=== PATIENT | female | born 1975 | race Caucasian/White ===

== ENCOUNTER 2016-12-19 02:20 | Inpatient (IN) | payer OTHER ==
[~2016-12-19] VITALS: Ht 162.6 cm; Wt 113.7 kg
[~2016-12-19 02:20] MED LIST: DIAZEPAM10 MG PO; ESCI20TA10 PO; LEVO750T31 PO; METF500T4 PO; PALI9TAB PO; PRED20TA PO; PROAIR HFA8.5 GM IH
--- NOTE | 2016-12-19 03:27 | PHYS DOC ---
Past Medical History Past Medical History: Asthma, Bronchitis, COPD, Diabetes-Type II Additional Past Medical Histor: Hepatitis C Past Surgical History: Appendectomy, Cholecystectomy, Alcohol Use: None Drug Use: None Adult General Chief Complaint Chief Complaint: MULTIPLE COMPLAINTS HPI HPI Patient is a 41 year old female who presents with complaint of body aches and shortness of breath. Patient states her symptoms started yesterday morning and has continued to get worse. Patient states that she feels achy all over. Patient has also had dry cough and mild shortness of breath associated with her symptoms. Patient rates her discomfort as 8 out of 10. Patient states that she had a fever of 102.1F measured yesterday. Patient states she took Tylenol approximately 8 hours ago. Patient minutes to sore throat and mild headache. Patient denies chest pain or vomiting currently. Review of Systems Review of Systems Constitutional: Fever, chills [] Eyes: Denies change in visual acuity, redness, or eye pain [] HENT: Sore throat [] Respiratory: Cough, shortness of breath [] Cardiovascular: Denies chest pain or edema [] GI: Denies abdominal pain, nausea, vomiting, bloody stools or diarrhea [] : Denies dysuria or hematuria [] Musculoskeletal: Body aches, denies joint pain [] Integument: Denies rash or skin lesions [] Neurologic: Headache, denies focal weakness or sensory changes [] Current Medications Current Medications Current Medications Medications (Trade) Dose Ordered Sig/Fazal Start Time Stop Time Status Last Admin Dose Admin Acetaminophen (Tylenol) 650 mg PRN Q4HRS PRN 12/19/16 05:45 12/20/16 05:44 Albuterol/ Ipratropium (Duoneb) 3 ml RTQID 12/19/16 08:00 12/20/16 07:59 Fentanyl Citrate 50 mcg 50 mcg PRN Q2HR PRN 12/19/16 05:45 12/20/16 05:44 Ibuprofen (Motrin) 400 mg 1X ONCE 12/19/16 03:30 12/19/16 03:57 DC 12/19/16 04:08 400 MG Info (Do NOT chart on this entry -- for MONITORING) 1 each PRN DAILY PRN 12/19/16 04:45 12/21/16 04:44 Iohexol (Omnipaque 300 Mg/ml) 75 ml 1X ONCE 12/19/16 04:45 12/19/16 04:46 DC 12/19/16 05:08 75 ML Levofloxacin/ Dextrose (LEVAQUIN 500mg PREMIX) 100 ml @ 100 mls/hr Q24H 12/19/16 06:00 Levofloxacin/ Dextrose 1 each 1 each PRN DAILY PRN 12/19/16 06:00 Ondansetron HCl (Zofran) 4 mg PRN Q8HRS PRN 12/19/16 05:45 12/20/16 05:44 Sodium Chloride (Iv Sodium Chloride 0.9% 1000ml Bag) 1,000 ml @ 125 mls/hr Q8H 12/19/16 05:45 12/20/16 05:44 Allergies Allergies Allergies Coded Allergies Type Severity Reaction Last Updated Verified No Known Drug Allergies 11/29/14 No Physical Exam Physical Exam Constitutional: Alert, obese, afebrile, appears in mild to moderate discomfort. [] HENT: Normocephalic, atraumatic, bilateral external ears normal, oropharynx moist, no oral exudates, nose normal. [] Eyes: PERRLA, EOMI, conjunctiva normal, no discharge. [] Neck: Normal range of motion, no tenderness, supple, no stridor. [] Cardiovascular: Tachycardia, regular rhythm, no murmur [] Lungs & Thorax: Mild to moderate stricture of air movement bilaterally, expiratory wheezes bilaterally, rales [] Abdomen: Bowel sounds normal, soft, no tenderness, no masses, no pulsatile masses. [] Skin: Warm, dry, no erythema, no rash. [] Back: No tenderness, no CVA tenderness. [] Extremities: No tenderness, no cyanosis, no clubbing, ROM intact, no edema. [] Neurologic: Alert and oriented X 3, normal motor function, normal sensory function, no focal deficits noted. [] Current Patient Data Vital Signs Vital Signs Date Time Temp Pulse Resp B/P Pulse Ox O2 Delivery O2 Flow Rate FiO2 12/19/16 05:00 102 132/87 91 Nasal Cannula 4 12/19/16 03:01 98.9 15 98.9 Lab Values Laboratory Tests Test 12/19/16 02:43 12/19/16 03:15 White Blood Count 12.3x10^3/uL (4.0-11.0) H Red Blood Count 5.31x10^6/uL (3.50-5.40) Hemoglobin 17.4g/dL (12.0-15.5) H Hematocrit 54.4% (36.0-47.0) H Mean Corpuscular Volume 102fL (79-100) H Mean Corpuscular Hemoglobin 33pg (25-35) Mean Corpuscular Hemoglobin Concent 32g/dL (31-37) Red Cell Distribution Width 16.8% (11.5-14.5) H Platelet Count 231x10^3/uL (140-400) Neutrophils (%) (Auto) 72% (31-73) Lymphocytes (%) (Auto) 17% (24-48) L Monocytes (%) (Auto) 8% (0-9) Eosinophils (%) (Auto) 2% (0-3) Basophils (%) (Auto) 0% (0-3) Neutrophils # (Auto) 8.9x10^3uL (1.8-7.7) H Lymphocytes # (Auto) 2.1x10^3/uL (1.0-4.8) Monocytes # (Auto) 1.0x10^3/uL (0.0-1.1) Eosinophils # (Auto) 0.2x10^3/uL (0.0-0.7) Basophils # (Auto) 0.0x10^3/uL (0.0-0.2) Sodium Level 141mmol/L (136-145) Potassium Level 3.9mmol/L (3.5-5.1) Chloride Level 99mmol/L (98-107) Carbon Dioxide Level 37mmol/L (21-32) H Anion Gap 5 (6-14) L Blood Urea Nitrogen 8mg/dL (7-20) Creatinine 0.8mg/dL (0.6-1.0) Estimated GFR (Cockcroft-Gault) 79.4 BUN/Creatinine Ratio 10 (6-20) Glucose Level 159mg/dL (70-99) H Calcium Level 8.9mg/dL (8.5-10.1) Total Bilirubin 0.5mg/dL (0.2-1.0) Aspartate Amino Transferase (AST) 29U/L (15-37) Alanine Aminotransferase (ALT) 42U/L (14-59) Alkaline Phosphatase 88U/L (46-116) Total Protein 7.1g/dL (6.4-8.2) Albumin 3.3g/dL (3.4-5.0) L Albumin/Globulin Ratio 0.9 (1.0-1.7) L Influenza Type A Antigen Negative (NEGATIVE) Influenza Type B Antigen Negative (NEGATIVE) Laboratory Tests 12/19/16 02:43 Laboratory Tests 12/19/16 02:43 EKG EKG Interpreted by me: Heart rate 94, sinus tachycardia, normal intervals, normal axis, no acute ST/T-wave abnormalities present [] Radiology/Procedures Radiology/Procedures One view AP chest x-ray interpreted by me: Right lower lobe perihilar consolidation versus mass, no effusions, no cardiomegaly [facility] [address] [place] [address] IMAGING REPORT Signed PATIENT: SHAHNAZ PELAEZ I ACCOUNT: [id number] : 1975 LOCATION: ER AGE: 41 SEX: F EXAM STATUS: REG ER ORD. PHYSICIAN: TANK KEARNEY MD REASON: right lower lobe pneumonia versus mass PROCEDURE: CHEST W/CONTRAST Examination: CT chest with IV contrast History: History of right lower lobe pneumonia. COMPARISON None available. TECHNIQUE Axial CT images of the chest were performed with IV contrast. Coronal and sagittal reformats were performed. Exposure: One or more of the following dose reduction technique were utilized for this examination: 1. Automated exposure control. 2.Adjustment of MA and /or KV according to patient size. 3. Use of iterative reconstruction technique. Findings: The visualized thyroid grossly appears unremarkable. The central airways are patent. Moderate cardiomegaly. Mild prominent bilateral interlobular septa. There is consolidation changes identified in the inferior aspect of the right upper lobe and right middle lobe of the lung likely pneumonia or postobstructive atelectasis. Central mass causing post obstructive atelectasis in the right hilum is not completely excluded. The right middle lobe bronchus appears narrowed. There is a diffuse geographic areas of hypodensities identified in the right and left lobes of the liver probably fatty infiltration . The visualized spleen, adrenal grossly appears unremarkable . No evidence of lytic bony destructive lesion identified. IMPRESSION 1. Right inferior upper lobe and middle lobe consolidation changes identified likely pneumonia or postobstructive atelectasis or central mass causing postobstructive atelectasis not completely excluded. Differentiation is difficult as not much IV contrast is identified in the vasculature. The right middle lobe bronchi appear narrowed. Recommend close interval followup examination to document resolution. 2. Large geographic areas of hypodensities identified in the liver likely fatty infiltration. Comparison to prior exam is recommended. Images are not available for comparison at this time. 3. Moderate cardiomegaly with prominent appearing bilateral interlobular septa likely congestion. Electronically signed by: George Lizama (Dec 19, 2016 05:48:07) DICTATED and SIGNED BY: GEORGE LIZAMA MD DATE: 12/19/16 0548 CC: MANUEL JEFFERSON MD; TANK KEARNEY MD ~ [] Course & Med Decision Making Course & Med Decision Making Pertinent Labs and Imaging studies reviewed. (See chart for details) Patient was started on IV fluids, Zofran, and fentanyl. Patient's chest x-ray showed a right lower lobe pneumonia as well as what looked like an abnormal mass lesion. CT of the chest also raise suspicion for malignancy. Patient was started on IV Levaquin. Patient will be admitted for further treatment and evaluation. I spoke with Dr. Coto who was on-call for Dr. Jefferson and she accepted care patient in hospital. A consult was placed to Dr. Calle to follow with patient in hospital. Dragon Disclaimer Dragon Disclaimer This electronic medical record was generated, in whole or in part, using a voice recognition dictation system. Departure Departure Impression: Primary Impression: CAP (community acquired pneumonia) Additional Impressions: COPD with acute exacerbation Dehydration Hepatic lesion Disposition: ADMITTED INPATIENT Admitting Physician: Kaela Coto Condition: GUARDED Referrals: MANUEL JEFFERSON MD (PCP) Problem Qualifiers TANK KEARNEY MD Dec 19, 2016 03:27
[2016-12-19 03:28] LABS: BASO % 0 % (0-3); EOS % 2 % (0-3); HEMATOCRIT 54.4 % (36.0-47.0); HEMOGLOBIN 17.4 g/dL (12.0-15.5); LYMPH # 2.1 x10^3/uL (1.0-4.8); LYMPH % 17 % (24-48); MEAN CORPUSCULAR HEMOGLOBIN 33 pg (25-35); MEAN CORPUSCULAR HGB CONC 32 g/dL (31-37); MEAN CORPUSCULAR VOLUME 102 fL (79-100); MONO % 8 % (0-9); NEUT % 72 % (31-73); PLATELET COUNT 231 x10^3/uL (140-400); RED BLOOD COUNT 5.31 x10^6/uL (3.50-5.40); RED CELL DISTRIBUTION WIDTH 16.8 % (11.5-14.5); WHITE BLOOD COUNT 12.3 x10^3/uL (4.0-11.0)
[2016-12-19] MEDS ORDERED: IPRATRPIUM/ALBUTEROL 0.5/2.5MG 3 ML NEBU. NEB ONE (03:30)
[2016-12-19] MEDS ORDERED: IV NORMAL SALINE 1000ML BAG 1,000 ML IV SCH ×2 (03:30→05:45)
[2016-12-19] MEDS ORDERED: IBUPROFEN 400 MG TABLET. PO ONE (03:30)
[2016-12-19 03:40] LABS: CALCIUM 8.9 mg/dL (8.5-10.1); CREATININE 0.8 mg/dL (0.6-1.0); GFR 79.4; POTASSIUM 3.9 mmol/L (3.5-5.1)
[2016-12-19 03:46] LABS: ALBUMIN 3.3 g/dL (3.4-5.0); ALBUMIN/GLOBULIN RATIO 0.9 (1.0-1.7); TOTAL BILIRUBIN 0.5 mg/dL (0.2-1.0); TOTAL PROTEIN 7.1 g/dL (6.4-8.2)
[2016-12-19 04:15] LABS: OBC FLU VALID
[2016-12-19] MEDS ORDERED: CONTRAST GIVEN MC PRN (04:45)
[2016-12-19] MEDS ORDERED: IOHEXOL 300 MG/ML 75 ML VIAL IV ONE (04:45)
[2016-12-19] MEDS ORDERED: ONDANSETRON PF 4 MG/2 ML VIAL. IV PRN (05:45)
[2016-12-19] MEDS ORDERED: ACETAMINOPHEN 325 MG TABLET. PO PRN (05:45)
[2016-12-19] MEDS ORDERED: FENTANYL PF 100 MCG/2 ML VIAL. IV PRN (05:45)
--- NOTE | 2016-12-19 05:49 | RAD ---
Examination: CT chest with IV contrast History: History of right lower lobe pneumonia. COMPARISON None available. TECHNIQUE Axial CT images of the chest were performed with IV contrast. Coronal and sagittal reformats were performed. Exposure: One or more of the following dose reduction technique were utilized for this examination: 1. Automated exposure control. 2.Adjustment of MA and /or KV according to patient size. 3. Use of iterative reconstruction technique. Findings: The visualized thyroid grossly appears unremarkable. The central airways are patent. Moderate cardiomegaly. Mild prominent bilateral interlobular septa. There is consolidation changes identified in the inferior aspect of the right upper lobe and right middle lobe of the lung likely pneumonia or postobstructive atelectasis. Central mass causing post obstructive atelectasis in the right hilum is not completely excluded. The right middle lobe bronchus appears narrowed. There is a diffuse geographic areas of hypodensities identified in the right and left lobes of the liver probably fatty infiltration . The visualized spleen, adrenal grossly appears unremarkable . No evidence of lytic bony destructive lesion identified. IMPRESSION 1. Right inferior upper lobe and middle lobe consolidation changes identified likely pneumonia or postobstructive atelectasis or central mass causing postobstructive atelectasis not completely excluded. Differentiation is difficult as not much IV contrast is identified in the vasculature. The right middle lobe bronchi appear narrowed. Recommend close interval followup examination to document resolution. 2. Large geographic areas of hypodensities identified in the liver likely fatty infiltration. Comparison to prior exam is recommended. Images are not available for comparison at this time. 3. Moderate cardiomegaly with prominent appearing bilateral interlobular septa likely congestion. Electronically signed by: George Lizama (Dec 19, 2016 05:48:07)
[2016-12-19] MEDS ORDERED: LEVOFLOXACIN PER PHARMACY MC PRN (06:00)
--- NOTE | 2016-12-19 06:36 | ACF ---
Admission Forms Criteria COPD Clinical Indications for Admission to Inpatient Care (Place 'X' for any and all applicable criteria): Admission is indicated for ANY ONE of the following (1)(2)(3): [X]I. Acute exacerbation by high-risk comorbidity (e.g., pneumonia, dysrhythmia, heart failure, pleural effusion, pneumothorax) or severe underlying COPD (e.g., steroid dependent) [ ]II. Inpatient admission required rather than observation care (see Chronic Obstructive Pulmonary Disease: Observation Care) because of ANY ONE of the following: [ ]a) New or pre-existing signs or symptoms of COPD (eg, dyspnea or Tachypnea at rest or with minimal activity) that persist despite outpatient and observation care treatment [ ]b) New-onset hypoxemia (room air SaO2 less than 90%, PO2 less than 60 mm Hg (8.0 kPa)) that persists despite outpatient and observation care treatment [ ]c) Worsening of pre-existing hypoxemia (eg, new or increased requirement for supplemental oxygen to maintain oxygenation at baseline level) that persists despite outpatient and observation care treatment, with oxygen treatment needs performable only in acute inpatient setting [ ]d) Hypercarbia (PCO2 greater than 40 mm Hg (5.3 kPa))-induced respiratory acidosis (pH less than 7.35) that persists despite outpatient and observation care treatment [ ]e) Supplemental oxygen or respiratory treatments for over 24 hours that are performable only in acute inpatient setting [ ]f) Chest tube placement with active evacuation (e.g., suction, drainage) (5) [ ]g) Other condition, treatment or monitoring requiring inpatient admission [ ]III. Planned invasive surgical or diagnostic procedures requiring acute- care hospitalization [ ]IV. Acute respiratory failure (e.g., uncompensated hypercarbia, severe hypoxemia) [ ]V. Severe comorbid condition (e.g., severe steroid myopathy, acute vertebral fracture) that has acutely worsened pulmonary function [ ]. Confusion state, lethargy, obtundation, stupor or coma Extended stay beyond goal length of stay may be needed for (31)(32): [ ]a ) Respiratory Failure. [ ]b) Severe or persisting hypoxemia or hypercarbia [ ]c) Severe or persistent dyspnea [ ]d) Comorbidities (e.g. chronic heart failure, atrial fibrillation with rapid response, pneumonia) [ ]e) Malnutrition The original [facility] content created by [facility] has been revised. The portions of the content which have been revised are identified through the use of italic text or in bold, and [facility] has neither reviewed nor approved the modified material. All other unmodified content is copyright [facility]. Please see references footnoted in the original [facility] edition 2016 Admission Criteria Met?: Yes JUNE TRAVIS Dec 19, 2016 06:36
[2016-12-19 07:00] VITALS: BP 127/94
--- NOTE | 2016-12-19 07:54 | RAD ---
Indication shortness of breath. A single view chest was obtained. Comparison is made to a study 06/03/2015. There is an infiltrate in the right lower lobe compatible with pneumonia. Follow-up imaging, to resolution, advised. A focal infiltrate in the left lung is not seen. Significant pleural fluid is not present. There is no pneumothorax. IMPRESSION: Infiltrate in the right lower lobe compatible with pneumonia. Follow-up imaging, to resolution, advised
[2016-12-19] MEDS: IPRATRPIUM/ALBUTEROL 0.5/2.5MG 3 ML NEBU. NEB SCH ×4 (09:40→19:43)
[2016-12-19] MEDS ORDERED: DEXTROSE 50% 25 GM / 50ML DISP.SYRIN. IV PRN (09:45)
[2016-12-19] MEDS ORDERED: FLUT100D IH (10:04)
[2016-12-19] MEDS ORDERED: PALI3TAB2 PO (10:04)
[2016-12-19] MEDS ORDERED: [UNRECOGNIZED DRUG - OTHER] (10:04)
[2016-12-19] MEDS ORDERED: CETI10TA16 PO (10:04)
[2016-12-19] MEDS ORDERED: HYDR-971 PO (10:04)
[2016-12-19] MEDS ORDERED: PALI9TAB PO (10:04)
[2016-12-19] MEDS ORDERED: INSU300I SQ (10:04)
[2016-12-19] MEDS ORDERED: INSU100C4 SQ (10:04)
[2016-12-19] MEDS ORDERED: OMEP20CA9 PO (10:04)
[2016-12-19] MEDS ORDERED: DIAZEPAM 5 MG TABLET PO PRN (10:15)
--- NOTE | 2016-12-19 10:16 | PDOC ---
PROGRESS NOTES Subjective Subjective Patient requests her [place] and Valium. States her breathing is some better than at admission. Reports she has O2 at home but hadn't been using it recently. Objective Objective Vital Signs Date Time Temp Pulse Resp B/P Pulse Ox O2 Delivery O2 Flow Rate FiO2 12/19/16 09:43 97 Nasal Cannula 4.0 12/19/16 07:00 98.8 91 20 127/94 98.8 Intake and Output 12/19/16 07:00 Intake Total 1000 ml Balance 1000 ml Intake IV Total 1000 ml Physical Exam Abdomen: Normal bowel sounds, Soft, No tenderness Heart: Regular rate Extremities: No edema General: Alert, Oriented X3, No acute distress Lungs: Other (Coarse BS and expiratory wheezes throughout) Assessment Assessment Problems Medical Problems: (1) CAP (community acquired pneumonia) Status: Acute (2) COPD with acute exacerbation Status: Acute (3) Dehydration Status: Acute (4) Hepatic lesion Status: Acute Plan Plan of Care 1. Pneumonia with AE COPD and chronic respiratory failure - CT chest showed infiltrates, possibly post-obstructive. No hypoxia on O2 per NC. Started on Levaquin, Pulmonary consult pending. 2. DM2 - insulin-dependent. Has not been well controlled per office chart. Patient admits she is taking less insulin that Dr Jefferson has advised, and not taking with every meal. Will resume here and adjust doses as indicated. ADA diet also ordered. 3. chronic anxiety - resume home meds, patient feels she has been doing OK with these. 4. chronic pain - resume [place]. 5. fatty liver - this was seen on CT at admission and concern was for possible metastatic disease? CT on office chart from 2014 shows fatty infiltration so metastasis from unknown primary very unlikely. 6. tobaccoism - patient requests Nicotine patch while here, ordered. She is aware of advice to quit smoking, states she is trying to cut down. Comment Review of Relevant I have reviewed the following items suyapa (where applicable) has been applied. Labs Laboratory Tests Test 12/19/16 02:43 12/19/16 03:15 12/19/16 07:58 White Blood Count 12.3x10^3/uL (4.0-11.0) Red Blood Count 5.31x10^6/uL (3.50-5.40) Hemoglobin 17.4g/dL (12.0-15.5) Hematocrit 54.4% (36.0-47.0) Mean Corpuscular Volume 102fL (79-100) Mean Corpuscular Hemoglobin 33pg (25-35) Mean Corpuscular Hemoglobin Concent 32g/dL (31-37) Red Cell Distribution Width 16.8% (11.5-14.5) Platelet Count 231x10^3/uL (140-400) Neutrophils (%) (Auto) 72% (31-73) Lymphocytes (%) (Auto) 17% (24-48) Monocytes (%) (Auto) 8% (0-9) Eosinophils (%) (Auto) 2% (0-3) Basophils (%) (Auto) 0% (0-3) Neutrophils # (Auto) 8.9x10^3uL (1.8-7.7) Lymphocytes # (Auto) 2.1x10^3/uL (1.0-4.8) Monocytes # (Auto) 1.0x10^3/uL (0.0-1.1) Eosinophils # (Auto) 0.2x10^3/uL (0.0-0.7) Basophils # (Auto) 0.0x10^3/uL (0.0-0.2) Sodium Level 141mmol/L (136-145) Potassium Level 3.9mmol/L (3.5-5.1) Chloride Level 99mmol/L (98-107) Carbon Dioxide Level 37mmol/L (21-32) Anion Gap 5 (6-14) Blood Urea Nitrogen 8mg/dL (7-20) Creatinine 0.8mg/dL (0.6-1.0) Estimated GFR (Cockcroft-Gault) 79.4 BUN/Creatinine Ratio 10 (6-20) Glucose Level 159mg/dL (70-99) Calcium Level 8.9mg/dL (8.5-10.1) Total Bilirubin 0.5mg/dL (0.2-1.0) Aspartate Amino Transf (AST/SGOT) 29U/L (15-37) Alanine Aminotransferase (ALT/SGPT) 42U/L (14-59) Alkaline Phosphatase 88U/L (46-116) Total Protein 7.1g/dL (6.4-8.2) Albumin 3.3g/dL (3.4-5.0) Albumin/Globulin Ratio 0.9 (1.0-1.7) Influenza Type A Antigen Negative (NEGATIVE) Influenza Type B Antigen Negative (NEGATIVE) Glucose (Fingerstick) 172mg/dL (70-99) Laboratory Tests Test 12/19/16 02:43 12/19/16 03:15 12/19/16 07:58 White Blood Count 12.3x10^3/uL (4.0-11.0) Red Blood Count 5.31x10^6/uL (3.50-5.40) Hemoglobin 17.4g/dL (12.0-15.5) Hematocrit 54.4% (36.0-47.0) Mean Corpuscular Volume 102fL (79-100) Mean Corpuscular Hemoglobin 33pg (25-35) Mean Corpuscular Hemoglobin Concent 32g/dL (31-37) Red Cell Distribution Width 16.8% (11.5-14.5) Platelet Count 231x10^3/uL (140-400) Neutrophils (%) (Auto) 72% (31-73) Lymphocytes (%) (Auto) 17% (24-48) Monocytes (%) (Auto) 8% (0-9) Eosinophils (%) (Auto) 2% (0-3) Basophils (%) (Auto) 0% (0-3) Neutrophils # (Auto) 8.9x10^3uL (1.8-7.7) Lymphocytes # (Auto) 2.1x10^3/uL (1.0-4.8) Monocytes # (Auto) 1.0x10^3/uL (0.0-1.1) Eosinophils # (Auto) 0.2x10^3/uL (0.0-0.7) Basophils # (Auto) 0.0x10^3/uL (0.0-0.2) Sodium Level 141mmol/L (136-145) Potassium Level 3.9mmol/L (3.5-5.1) Chloride Level 99mmol/L (98-107) Carbon Dioxide Level 37mmol/L (21-32) Anion Gap 5 (6-14) Blood Urea Nitrogen 8mg/dL (7-20) Creatinine 0.8mg/dL (0.6-1.0) Estimated GFR (Cockcroft-Gault) 79.4 BUN/Creatinine Ratio 10 (6-20) Glucose Level 159mg/dL (70-99) Calcium Level 8.9mg/dL (8.5-10.1) Total Bilirubin 0.5mg/dL (0.2-1.0) Aspartate Amino Transf (AST/SGOT) 29U/L (15-37) Alanine Aminotransferase (ALT/SGPT) 42U/L (14-59) Alkaline Phosphatase 88U/L (46-116) Total Protein 7.1g/dL (6.4-8.2) Albumin 3.3g/dL (3.4-5.0) Albumin/Globulin Ratio 0.9 (1.0-1.7) Influenza Type A Antigen Negative (NEGATIVE) Influenza Type B Antigen Negative (NEGATIVE) Glucose (Fingerstick) 172mg/dL (70-99) Medications Current Medications Sodium Chloride (Iv Sodium Chloride 0.9% 1000ml Bag) 1,000 ml @ 1,000 mls/hr Q1H IV Last administered on 12/19/16 04:08; Start 12/19/16 at 03:30; Stop at 04:30; Status DC Albuterol/ Ipratropium (Duoneb) 3 ml 1X ONCE NEB Last administered on 04:22; Start 12/19/16 at 03:30; Stop 12/19/16 at 03:57; Status DC Ibuprofen (Motrin) 400 mg 1X ONCE PO Last administered on 12/19/16 04:08; Start 12/19/16 at 03:30; Stop 12/19/16 at 03:57; Status DC Iohexol (Omnipaque 300 Mg/ml) 75 ml 1X ONCE IV Last administered on 12/19/16 05:08; Start 12/19/16 at 04:45; Stop 12/19/16 at 04:46; Status DC Info (Do NOT chart on this entry -- for MONITORING) 1 each PRN DAILY PRN MC SEE COMMENTS; Start 12/19/16 at 04:45; Stop 12/21/16 at 04:44 Ondansetron HCl (Zofran) 4 mg PRN Q8HRS PRN IV NAUSEA/VOMITING; Start 12/19/16 at 05:45; Stop 12/20/16 at 05:44 Fentanyl Citrate 50 mcg 50 mcg PRN Q2HR PRN IV PAIN; Start 12/19/16 at 05:45; Stop 12/20/16 at 05:44 Sodium Chloride (Iv Sodium Chloride 0.9% 1000ml Bag) 1,000 ml @ 125 mls/hr Q8H IV ; Start 12/19/16 at 05:45; Stop 12/20/16 at 05:44 Acetaminophen (Tylenol) 650 mg PRN Q4HRS PRN PO FEVER; Start 12/19/16 at 05:45 ; Stop 12/20/16 at 05:44 Albuterol/ Ipratropium (Duoneb) 3 ml RTQID NEB Last administered on 12/19/16 09:40; Start 12/19/16 at 08:00; Stop 12/20/16 at 07:59 Levofloxacin/ Dextrose 1 each 1 each PRN DAILY PRN MC SEE COMMENTS; Start 12/19 at 06:00 Levofloxacin/ Dextrose (LEVAQUIN 500mg PREMIX) 100 ml @ 100 mls/hr Q24H IV Last administered on 12/19/16 06:32; Start 12/19/16 at 06:00 Insulin Aspart (Novolog) 0-9 UNITS TIDWMEALS SQ ; Start 12/19/16 at 12:00 Dextrose 12.5 gm PRN Q15MIN PRN IV SEE COMMENTS; Start 12/19/16 at 09:45 Active Scripts Active [place] 5-325 Tablet (Acetaminophen/Hydrocodone Bitart) 1 Each Tablet 1 Tab PO TID Toujeo Solostar (Insulin Glargine,Hum.rec.anlog) 300 Unit/1 Ml Insuln.pen 65 Unit SQ HS 30 Days Omeprazole 20 Mg Capsule.dr 1 Cap PO BID Novolog (Insulin Aspart) 100 Unit/1 Ml Cartridge 35 Unit SQ TIDAC 30 Days Invega (Paliperidone) 9 Mg Tab.er.24 1 Tab PO DAILYWBKFT Invega (Paliperidone) 3 Mg Tab.er.24 1 Tab PO DAILY Flovent 100MCG Diskus (Fluticasone Propionate) 100 Mcg Disk.w.dev 2 Puff IH BID Cetirizine Hcl 10 Mg Tablet 1 Tab PO DAILY [norc] Reported Proair Hfa Inhaler (Albuterol Sulfate) 8.5 Gm Hfa.aer.ad 2 Puff IH PRN Q4-6HRS PRN Diazepam 10 Mg Tablet 10 Mg PO TID Vitals/I & O Vital Sign - Last 24 Hours 12/19/16 12/19/16 12/19/16 12/19/16 03:00 03:01 03:30 04:00 Temp 98.9 98.9 Pulse 96 100 100 94 Resp 15 B/P 133/75 133/75 158/90 174/80 Pulse Ox 97 98 97 99 O2 Delivery Nasal Cannula Nasal Cannula Nasal Cannula Room Air O2 Flow Rate 4 4 4 4 12/19/16 12/19/16 12/19/16 12/19/16 04:25 04:30 05:00 06:00 Pulse 98 102 94 B/P 132/87 Pulse Ox 98 96 91 98 O2 Delivery Nasal Cannula Nasal Cannula Nasal Cannula Nasal Cannula O2 Flow Rate 2.0 4 4 4 12/19/16 12/19/16 12/19/16 06:30 07:00 09:43 Temp 98.8 98.8 Pulse 94 91 Resp 20 B/P 127/94 Pulse Ox 94 90 97 O2 Delivery Nasal Cannula Nasal Cannula Nasal Cannula O2 Flow Rate 4 2.0 4.0 Intake and Output 12/18/16 12/18/16 12/19/16 15:00 23:00 07:00 Intake Total 1000 ml Balance 1000 ml ANY JACKSON MD Dec 19, 2016 10:16
[2016-12-19] MEDS ORDERED: NAPR500T3 PO (10:26)
[2016-12-19] MEDS ORDERED: NAPROXEN 500 MG TABLET PO PRN (10:30)
[2016-12-19] MEDS ORDERED: ALBUTEROL SULFATE 2.5 MG/3 ML NEBU. NEB PRN (10:30)
[2016-12-19 10:46] VITALS: BP 118/68
[2016-12-19] MEDS ORDERED: risperiDONE 1 MG TABLET. PO SCH ×2 (11:00→21:00)
[2016-12-19] MEDS: NICOTINE 21MG PATCH. TD SCH (11:28)
[2016-12-19] MEDS: CETIRIZINE HCL 10 MG TABLET. PO SCH (11:28)
--- NOTE | 2016-12-19 11:29 | EKG ---
[facility] [address] [place] [address] Test Date: 2016-12-19 Test Time: 03:19:48 Pat Name: SHAHNAZ PELAEZ Department: Room: Gender: F Cio: : 1975 Requested By: TANK KEARNEY Order Number: [id number] Reading MD: Measurements Intervals [place] Rate: 94 P: 61 AK: 126 QRS: 69 QRSD: 90 T: 66 QT: 398 QTc: 504 Interpretive Statements SINUS RHYTHM LEFT ATRIAL ABNORMALITY PROLONGED QT ABNORMAL ECG RI6.01 No previous ECG available for comparison
[2016-12-19] MEDS: INSULIN ASPART 300 UNITS/3 ML INSULN.PEN SQ SCH ×4 (11:30→18:35)
--- NOTE | 2016-12-19 11:47 | PDOC ---
Provider Note Provider Note [id number] acute on chronic resp fail abnl cxr pneumonia ae of copd see orders SANDRA CANALES MD Dec 19, 2016 11:46
--- NOTE | 2016-12-19 11:50 | HP ---
ADMIT DATE: 12/19/2016 CHIEF COMPLAINT: Cough and shortness of breath. HISTORY OF PRESENT ILLNESS: The patient is a 41-year-old female with a history of chronic respiratory failure due to COPD, who presented to the Emergency Room with the above complaint. She reported the onset of her symptoms on the day prior to admission. She had some diffuse myalgias and a dry cough. The patient has oxygen at home that she is prescribed to use continuously. She states that she had not been wearing it much, but she did put it on when she had the onset of the symptoms as above, but her symptoms persisted. Evaluation in the Emergency Room showed the patient to be afebrile. She was not hypoxic on oxygen per nasal cannula. Chest x-ray showed an infiltrate in the right lower lobe. CT of the chest was done, which showed right upper lobe and middle lobe consolidation, possibly on a postobstructive basis and the patient was admitted for further treatment. PAST MEDICAL HISTORY: Chronic respiratory failure due to COPD - the patient has been continuing his oxygen for this for some time, diabetes mellitus type 2 - insulin-dependent, hyperlipidemia with fatty liver, chronic anxiety with psychotic features, and GERD. PAST SURGICAL HISTORY: , laparoscopic appendectomy, and laparoscopic cholecystectomy. ALLERGIES: The patient has no known drug allergies. HOME MEDICATIONS: Morton 7.5/325 mg p.r.n., albuterol inhaler p.r.n., Zyrtec 10 mg daily, Valium 10 mg t.i.d., Flovent 100 mcg Diskus 2 puffs b.i.d., NovoLog insulin 35 units t.i.d. a.c., Toujeo insulin 65 units at bedtime, omeprazole 20 mg b.i.d., Invega 9 mg daily, and naproxen 500 mg b.i.d. FAMILY HISTORY: Noncontributory. SOCIAL HISTORY: The patient is . She is not employed. She is a homemaker. She smokes cigarettes daily. The amount of this is somewhat unclear. She does not have a history of substance abuse or alcohol abuse. REVIEW OF SYSTEMS: The patient had a subjective fever at home. She denies chest pain or palpitations. She denies abdominal pain, nausea, or vomiting. Her heartburn has been controlled with her usual omeprazole. She denies lower extremity edema. She has chronic pain and feels that this has been okay with the hydrocodone. She has chronic anxiety and possibly a thought disorder. She feels that she has been doing okay with her usual medications that she gets from [facility]. She did receive a flu shot last fall at our office. She admits that she does not take as much insulin as she has been prescribed and does not take it with every meal. She states that her fingersticks have been about in the 160s with the amount of insulin that she has been actually taking. PHYSICAL EXAMINATION: GENERAL: The patient is alert and oriented x 3, resting comfortably in bed in no acute distress. HEENT: PERRL, EOMI. Sclerae clear. Oropharynx: Mucous membranes are moist. NECK: Supple without lymphadenopathy. CHEST: Coarse breath sounds and expiratory wheezes throughout. CARDIOVASCULAR: Regular rhythm without murmur. ABDOMEN: Soft, nontender. Normoactive bowel sounds are present. EXTREMITIES: Without edema. ASSESSMENT AND PLAN: 1. Pneumonia with acute exacerbation of chronic obstructive pulmonary disease and chronic respiratory failure. The patient is not hypoxic on oxygen per nasal cannula. She has been started on Levaquin. A consult with Pulmonary Medicine is pending at this time. 2. Insulin-dependent diabetes mellitus type 2. This has not been well-controlled per the patient's office chart. We will resume her scheduled insulin and use sliding scale as needed. An ADA diet is also ordered. 3. Chronic anxiety. Resume home medications. 4. Chronic pain. This appears stable. Continue hydrocodone and naproxen as needed. 5. Hyperlipidemia with fatty liver. The changes of fatty liver were seen on the CT at admission and a concern was for possible metastatic disease. However, a CT on the office chart from 2014 shows the presence of fatty infiltration, so metastasis from an unknown primary is very unlikely at this time. 6. Tobaccoism. The patient requests a nicotine patch while she is here and this has been ordered. She is aware of the advice to quit smoking and states that she is trying to cut down. ANY JACKSON MD DR: LUCY/vangie JOB#: [id number] / [id number] MTDD
[2016-12-19] MEDS ORDERED: PNEUMOCOCCAL VAX SCREEN BY RX. MC ONE (12:00)
[2016-12-19] MEDS ORDERED: PNEUMOC CONJ VACC 23-VALENT 0.5 ML VIAL. VAX IM ONE (12:15)
--- NOTE | 2016-12-19 12:39 | CONS ---
DATE OF CONSULTATION: 12/19/2016 REASON FOR CONSULTATION: I was asked to see this 41-year-old lady for acute on chronic respiratory failure, abnormal CT of the chest, pneumonia. HISTORY OF PRESENT ILLNESS: She has a history of at least 63-[id number] smoking, continues to smoke about 1 pack per day. She is on oxygen 4 liters per minute via nasal cannula continuously. She started to have increased shortness of breath, cough, wheezing, sputum production, fever and chills yesterday. She also has had wheezing. She denies pain, but has had chest tightness. She is very upset. She wants to go home. She has been followed by [facility]. PAST MEDICAL HISTORY: COPD, chronic respiratory failure, diabetes mellitus, hepatitis C, cholecystectomy and appendectomy. ALLERGIES: No known drug allergies. MEDICATIONS: Chronically, she is on insulin, Pulmicort, Protonix, risperidone, naproxen, nicotine patch, Valium, Zyrtec, DuoNeb and levofloxacin. SOCIAL HISTORY: History of 50-[id number]-zkbp smoking, continues to smoke 1 pack per day. FAMILY HISTORY: Positive for hypertension. REVIEW OF SYSTEMS: As mentioned as above. She does have snoring and excessive daytime sleepiness. She is supposed to get a CPAP machine, other systems are otherwise negative. PHYSICAL EXAMINATION: GENERAL: This is an obese lady. VITAL SIGNS: Her O2 saturation on 4 liters of oxygen is 93%, respiratory rate 22, heart rate 85, blood pressure 118/68, temperature 98.1. HEENT: Normocephalic, atraumatic. Pupils equal, round, reactive to light. Throat is clear. There is shallow oropharynx. Nose: There is inflamed mucosa. NECK: There is no JVD, lymphadenopathy or thyromegaly. CARDIOVASCULAR: Regular rate and rhythm. PMI is nondisplaced. CHEST: Inspection is normal. LUNGS: A few bibasilar crackles, a few end expiratory wheezing. ABDOMEN: Soft. Bowel sounds are good. There is no mass. EXTREMITIES: There is edema. LYMPHATICS: There is no lymphadenopathy. NEUROLOGIC: Alert and oriented x 3. SKIN: Warm. LABORATORY DATA: I reviewed the following lab data. CT of the chest does show right upper lobe and middle lobe consolidation, liver fatty infiltrates. She had moderate cardiomegaly and prominent appearing bilateral interlobular septal likely congestion. WBC 12.3, hemoglobin 7.4, platelets 231, Influenza A and B negative. Sodium 141, potassium 3.9, chloride 99, CO2 of 37, BUN 18, creatinine 0.8. Total bilirubin 0.5, AST 29, ALT 42, alk phos 88. IMPRESSION: 1. Acute on chronic respiratory failure, multifactorial in etiology. 2. Abnormal chest x-ray and CT of the chest. 3. Acute exacerbation of chronic obstructive pulmonary disease. 4. Pneumonia. 5. Tobacco habituation. 6. Obstructive sleep apnea-hypopnea syndrome. 7. Diabetes mellitus. PLAN AND RECOMMENDATIONS: 1. I had a long discussion with her regarding the smoking cessation. I have advised her to stop smoking forever. 2. Titrate FiO2 to keep O2 saturation 92%. 3. Bronchodilator. 4. Inhale corticosteroid, she may require systemic steroid. 5. Continue Levaquin. 6. Check for legionella and strep pneumonia antigen and sputum culture. 7. Lovenox for DVT prophylaxis. 8. Protonix for stress ulcer prophylaxis. 9. CT changes. It should be followed very closely until clear. 10. I have discussed obstructive sleep apnea-hypopnea syndrome, the importance of treatment, if untreated increased cardiovascular and FI[employer] FIG[employer] morbidity or mortality. Monitor respiratory status very closely. The findings and recommendations were discussed with the patient and RN. I have answered all of the patient's questions. She understood and agreed to proceed with the plan. Thank you very much for allowing me to participate in care of this very nice lady. SANDRA CANALES M.D. : TAWANA/vangie JOB#: [id number] / [id number] DENNIS
[2016-12-19 15:00] VITALS: BP 148/87
[2016-12-19] MEDS: HYDROCODONE/APAP 5/325MG TABLET. PO PRN ×2 (15:19→20:31)
[2016-12-19] MEDS: PANTOPRAZOLE 40 MG TABLET. PO SCH (18:28)
[2016-12-19 19:00] VITALS: BP 135/89
[2016-12-19] MEDS: BUDESONIDE 0.5 MG/2 ML NEBU. NEB SCH (19:43)
[2016-12-19] MEDS ORDERED: INSULIN DETEMIR 300 UNITS/3 ML INSULN.PEN. SQ SCH ×2 (21:00)
[2016-12-19 23:00] VITALS: BP 144/72
[2016-12-20 03:02] VITALS: BP 128/95
[2016-12-20] MEDS: PANTOPRAZOLE 40 MG TABLET. PO SCH (05:22)
[2016-12-20 05:52] LABS: BASO # 0.1 x10^3/uL (0.0-0.2); BASO % 1 % (0-3); EOS % 3 % (0-3); HEMATOCRIT 54.6 % (36.0-47.0); HEMOGLOBIN 17.8 g/dL (12.0-15.5); LYMPH # 2.5 x10^3/uL (1.0-4.8); LYMPH % 22 % (24-48); MEAN CORPUSCULAR HEMOGLOBIN 33 pg (25-35); MEAN CORPUSCULAR HGB CONC 33 g/dL (31-37); MEAN CORPUSCULAR VOLUME 101 fL (79-100); MONO % 8 % (0-9); NEUT % 67 % (31-73); PLATELET COUNT 252 x10^3/uL (140-400); RED BLOOD COUNT 5.38 x10^6/uL (3.50-5.40); RED CELL DISTRIBUTION WIDTH 16.6 % (11.5-14.5); WHITE BLOOD COUNT 11.3 x10^3/uL (4.0-11.0)
[2016-12-20 05:56] LABS: CALCIUM 9.1 mg/dL (8.5-10.1); CREATININE 0.6 mg/dL (0.6-1.0); GFR 110.7; POTASSIUM 4.3 mmol/L (3.5-5.1)
[2016-12-20 07:30] VITALS: BP 129/85
[2016-12-20] MEDS: CETIRIZINE HCL 10 MG TABLET. PO SCH (07:43)
[2016-12-20] MEDS: NICOTINE 21MG PATCH. TD SCH (07:43)
[2016-12-20] MEDS: INSULIN ASPART 300 UNITS/3 ML INSULN.PEN SQ SCH ×2 (07:52→07:53)
[2016-12-20] MEDS ORDERED: NON FORMULARY ITEM (Paliperidone (Invega) 1 TAB) PO SCH (08:00)
[2016-12-20] MEDS: IPRATRPIUM/ALBUTEROL 0.5/2.5MG 3 ML NEBU. NEB SCH (08:02)
[2016-12-20] MEDS: BUDESONIDE 0.5 MG/2 ML NEBU. NEB SCH (08:02)
[2016-12-20] MEDS ORDERED: LEVO500T38 PO (08:44)
[2016-12-20] MEDS ORDERED: INSU100I27 SQ (08:44)
--- NOTE | 2016-12-20 08:51 | PDOC3 ---
Discharge Summary* Date of Admission: Dec 19, 2016 Date of Discharge: Dec 20, 2016 Admitting Diagnosis Problems Medical Problems: (1) CAP (community acquired pneumonia) Status: Acute (2) COPD with acute exacerbation Status: Acute (3) Dehydration Status: Acute (4) Hepatic lesion Status: Acute Final Diagnosis Acute on chronic respiratory failure 2/2 PNA and AE COPD, IDDM2, Chronic aniety , Chronic pain, Fatty Liver, Tobaccoism, Hypernatremia CONSULTS Pulmonology Procedures CXR- infiltrate RLL compatible with PNA CT Chest- right inferior upper lobe and middle lobe consolidative changes identified as possible pna, close interval follow up recommended Brief Hospital Course DISCHARGE PHYSICAL EXAM GEN: NAD, AOx3 HEENT: MMM, EOMI, no scleral icterus/injection Cardiac: RRR, no M/R/G Lungs: CTAB, regular breathing rate and effort Abdomen: Normal bowel sounds, Soft, No tenderness Extremities: No edema Pt is a 41yo CF admitted with acute on chronic respiratory failure 2/2 PNA 1. Pneumonia with AE COPD and chronic respiratory failure - CT chest showed infiltrates, possibly post-obstructive. No hypoxia on O2 per NC. Started on Levaquin, Pulmonary following. Pt significantly improved today without steroids. Will D/C on Levaquin WBC decreased to 113 this morning 2. DM2 - insulin-dependent. Has not been well controlled per office chart. Patient admits she is taking less insulin than advised, and not taking with every meal. Pt's medications adjusted here, and will be discharged on 10 units of Levemir and Novolog 35units QAC. 3. chronic anxiety - resume home meds, patient feels she has been doing OK with these. 4. chronic pain - resume [place]. 5. fatty liver - this was seen on CT at admission and concern was for possible metastatic disease? CT on office chart from 2014 shows fatty infiltration so metastasis from unknown primary very unlikely. 6. tobaccoism - patient requests Nicotine patch while here, ordered. She is aware of advice to quit smoking, states she is trying to cut down. 7. Hypernatremia- mild. Likely 2/2 dehydration Disposition/Orders: D/C to Home CONDITION AT DISCHARGE: Improved, Stable Diet: Consistent Carbohydrate Scheduled Cetirizine Hcl (Cetirizine Hcl) 1 TAB PO DAILY Diazepam (Diazepam) 10 MG PO TID (Reported) Fluticasone Propionate (Flovent 100MCG Diskus) 2 PUFF IH BID Hydrocodone/Apap 5-325 ([place] 5-325 Tablet) 1 TAB PO TID Insulin Aspart (Novolog) 35 UNIT SQ TIDAC Insulin Detemir (Levemir Flextouch) 10 UNITS SQ QHS Levofloxacin (Levaquin) 1 TAB PO DAILY Naproxen (Naproxen) 1 TAB PO BID Omeprazole (Omeprazole) 1 CAP PO BID Paliperidone (Invega) 1 TAB PO DAILY Paliperidone (Invega) 1 TAB PO DAILYWBKFT Scheduled PRN Albuterol Sulfate (Proair Hfa Inhaler) 2 PUFF IH PRN Q4-6HRS PRN PRN COUGH ( Reported) Discontinued Medications ([norc]) Escitalopram Oxalate (Lexapro) 20 MG PO DAILY (Reported) Insulin Glargine,Hum.rec.anlog (Toujeo Solostar) 65 UNIT SQ HS Levofloxacin (Levaquin) 750 MG PO DAILY06 Metformin Hcl (Metformin Hcl) 500 MG PO BIDWMEALS (Reported) Paliperidone (Invega) 1 TAB PO HS (Reported) Prednisone (Prednisone) 1 TAB PO BID PCP Pt has f/u appointment already scheduled with Dr Wong 12/23/16 Time Spent Total time spent with patient [] minutes for coordination of care, counseling, and education. MANUEL WONG MD Dec 20, 2016 08:51
[2016-12-21 22:11] LABS: SPECIMEN SOURCE Urine (.)
== END 2016-12-20 10:01 | disposition home or self-care (01) | DRG 871 ==
LOC: ER 02:20 → 5 NORTH 05:33
PROVIDERS: ADMIT Family Medicine; ATTEND Family Medicine
DX: A41.9 Sepsis, unspecified organism (principal); J96.20 Acute and chronic respiratory failure, unspecified whether with hypoxia or hypercapnia; J18.9 Pneumonia, unspecified organism; J44.0 Chronic obstructive pulmonary disease with (acute) lower respiratory infection; E87.0 Hyperosmolality and hypernatremia; J44.1 Chronic obstructive pulmonary disease with (acute) exacerbation; E11.9 Type 2 diabetes mellitus without complications; E78.5 Hyperlipidemia, unspecified; E86.0 Dehydration; F17.210 Nicotine dependence, cigarettes, uncomplicated; F41.9 Anxiety disorder, unspecified; G47.33 Obstructive sleep apnea (adult) (pediatric); G89.29 Other chronic pain; I51.7 Cardiomegaly; J45.909 Unspecified asthma, uncomplicated; B19.20 Unspecified viral hepatitis C without hepatic coma; K21.9 Gastro-esophageal reflux disease without esophagitis; K76.0 Fatty (change of) liver, not elsewhere classified; Z82.49 Family history of ischemic heart disease and other diseases of the circulatory system; Z99.81 Dependence on supplemental oxygen; Z90.49 Acquired absence of other specified parts of digestive tract; Z79.4 Long term (current) use of insulin
CPT/HCPCS: 36415; 71010; 71260; 80048; 80053; 82947; 85027; 87040; 87205; 87449; 87804; 90732; 93005; 94250; 94640; 94760; 96360; J1815; J1956; J7030; J7620; Q9967; 99285-25

== ENCOUNTER → 2017-08-08 | Outpatient (CLI) | payer OTHER ==
[~2017-08-08] MED LIST changes: +ATOR40TA59 PO; +BUPR150T9 PO; +CETI10TA16 PO; -ESCI20TA10 PO; +FLUT100D IH; +HYDR-971 PO; +INSU100C4 SQ; +INSU100I17 SQ; +INSU100I27 SQ; +INSU100V13 SQ; +INSU300I SQ; +LEVO500T59 PO; +LEXAPRO20 MG PO; +NAPR500T4 PO; +OMEP20CA9 PO; +PALI3TAB2 PO; +[UNRECOGNIZED DRUG - OTHER]
--- NOTE | 2017-08-10 09:52 | RAD ---
APPROVED REPORT Test Type: Pharmacological Stress Nurse/Tech: Ruth Aragon R.N. Test Indications: pre op for gastric bypass Cardiac History: asthma, high chol, dm, smoker Medications: see ehr Medical History: see ehr Resting ECG: sr Resting Heart Rate: 85 bpm Resting Blood Pressure: 126/63mmHg Pretest Chest Pain: No chest pain Nurse/Tech Notes lungs cta but diminished Consent: The procedure was explained to the patient in lay terms. Informed consent was witnessed. Westley eout was entered into [employer]. History and Stress Test performed by IRIS Allison, FLAKITA (R) (N) Pharm. Details Pharmacologic stress testing was performed using 0.4mg per 5ml of regadenoson given intravenously ove r 7-10 seconds. Stress Symptoms No chest pain or symptoms. POST EXERCISE Reason for Termination: Infusion complete Target HR: No Max HR: 103 bpm Max Blood Pressure: 129/68mmHg Chest Pain: No. Arrhythmia: No. ST Change: No. INTERPRETATION Stress EKG Conclusion: Baseline EKG showed sinus rhythm. No ischemic changes at peak stress. No arr hythmias. Imaging Protocol IMAGE PROTOCOL: Rest Tc-99m/stress Tc-99m 1 day Rest: Stress: Viability: Radiopharm.Tc99m EalftoujlXa38o Sestamibi Ydpm37dQu 32mCi Duration 15min. 10min. Img Date 08/09/2017 08/09/2017 Inj-Img [id number]. 60min. Rest Admin Site:IV - Left AntecubitalAdministrator:IRIS Allison ARRT (R)(N) Stress Admin Site: IV - Left AntecubitalAdministrator: RT Lori (R)(N) STRESS DATA End Diast. Vol.145.0mlAv. Heart Rate88.0bpm End Syst. Vol.50.0mlCO Index BSA0.0L/min Myocardial Rxia009.0gEject. Xrudmpqm87.0% Stress Rates Pk. Fill Rate3.39EDV/secLVtime Pk. Fill 165.00msec Pk. Empty Rate4.12ESV/secLVtime Pk. Qgwfx490.73msec 1/3 Pk. Fill1.45EDV/sec Stress Scores Regional WT0.00Summed WT3.00 Regional WM0.00Summed WM0.00 LV Perfusion Scintigraphic images showed a very small reversible defect involving the anteroapical wall consistent with ischemia. Wall Motion Normal left ventricle systolic function with ejection fraction calculated at 66%. LV Perf. Quant 17 Seg. SSS1.00 17 Seg. SRS0.00 17 Seg. SDS1.00 Stress Defect Extent (% LAD)0.00Rest Defect Extent (% LAD)0.00Rev. Defect Extent (% LAD)0.00 Stress Defect Extent (% LCX) 0.00Rest Defect Extent (% LCX)0.00Rev. Defect Extent (% LCX)0.00 Stress Defect Extent (% RCA)0.00Rest Defect Extent (% RCA)0.00Rev. Defect Extent (% RCA)0.00 Stress Defect Extent (% MARIA)0.00Rest Defect Extent (% MARIA)0.00Rev. Defect Extent (% MARIA)0.00 Conclusion 1. Regadenoson cardioisotope stress test showed very small amount of anteroapical wall ischemia. 2. Normal left ventricular systolic function with ejection fraction calculated at 66%. 3. Low to intermediate risk for cardiac events.
== END | disposition home or self-care (01) ==
LOC: NM 07:22
PROVIDERS: ATTEND Internal Medicine Cardiovascular Disease
DX: Z01.818 Encounter for other preprocedural examination (principal)
CPT/HCPCS: 78452; 96374; 96375; A9500

== ENCOUNTER 2017-08-22 06:30 | Outpatient (CLI) | payer OTHER ==
[~2017-08-22] VITALS: Ht 162.6 cm; Wt 109.8 kg
[~2017-08-22 06:30] MED LIST changes: -ATOR40TA59 PO; -BUPR150T9 PO; -INSU100I17 SQ; -INSU100V13 SQ
[2017-08-22] MEDS ORDERED: MIDAZOLAM HCL/PF 2 MG/2 ML VIAL. ONE ×2 (07:34→08:37)
[2017-08-22] MEDS ORDERED: NITROGLYCERIN 200 MCG/2 ML SYRINGE FOR CATH/VASC LAB. ONE (07:34)
[2017-08-22] MEDS ORDERED: HEPARIN for IV BOLUS 10,000 UNIT/10 ML VIAL. ONE (07:34)
[2017-08-22] MEDS ORDERED: fentaNYL PF VIAL 100 MCG/2 ML VIAL ONE ×2 (07:34→08:37)
[2017-08-22] MEDS ORDERED: VERAPAMIL 5 MG/2 ML VIAL. ONE (07:34)
[2017-08-22 07:35] LABS: HEMATOCRIT 49.4 % (36.0-47.0); HEMOGLOBIN 16.5 g/dL (12.0-15.5); RED BLOOD COUNT 4.95 x10^6/uL (3.50-5.40); RED CELL DISTRIBUTION WIDTH 15.9 % (11.5-14.5); WHITE BLOOD COUNT 7.6 x10^3/uL (4.0-11.0)
[2017-08-22 07:41] VITALS: BP 119/76
[2017-08-22 07:44] LABS: CALCIUM 9.1 mg/dL (8.5-10.1); GFR 61.4; POTASSIUM 4.5 mmol/L (3.5-5.1)
[2017-08-22 07:49] LABS: PROTHROMBIN TIME PATIENT 12.8 SEC (11.7-14.0)
[2017-08-22] MEDS ORDERED: IOHEXOL 300 MG/ML 100ML VIAL. ONE (07:55)
[2017-08-22] MEDS ORDERED: LIDOCAINE 2% 20 ML VIAL. ONE (07:55)
[2017-08-22] MEDS ORDERED: LIDOCAINE 1% / SOD BICARB 8.4% 20 ML VIAL. IJ ONE (08:00)
[2017-08-22] MEDS ORDERED: HEPARIN for IV BOLUS 10,000 UNIT/10 ML VIAL. IART ONE (08:00)
[2017-08-22] MEDS ORDERED: fentaNYL PF VIAL 100 MCG/2 ML VIAL IV ONE (08:00)
[2017-08-22] MEDS ORDERED: MIDAZOLAM HCL/PF 2 MG/2 ML VIAL. IV ONE (08:00)
[2017-08-22] MEDS ORDERED: NITROGLYCERIN 200 MCG/2 ML SYRINGE FOR CATH/VASC LAB. IART ONE (08:00)
[2017-08-22] MEDS ORDERED: IOHEXOL 300 MG/ML 100ML VIAL. IART ONE (08:00)
[2017-08-22] MEDS ORDERED: VERAPAMIL 5 MG/2 ML VIAL. IART ONE (08:00)
[2017-08-22] MEDS ORDERED: INSU100V13 SQ (08:22)
[2017-08-22] MEDS ORDERED: ATOR40TA59 PO (08:22)
[2017-08-22] MEDS ORDERED: INSU100I17 SQ (08:22)
[2017-08-22] MEDS ORDERED: BUPR150T9 PO (08:22)
[2017-08-22] MEDS ORDERED: LIDOCAINE 2% 20 ML VIAL. IJ ONE (09:00)
[2017-08-22 09:04] VITALS: BP 157/84
[2017-08-22 09:10] VITALS: BP 157/84
--- NOTE | 2017-08-22 09:18 | PDOC ---
MODERATE SEDATION ASSESSMENT RISKS/ALTERNATIVES Risks/Alternatives Risks and alternatives of this type of sedation and procedure discussed with: RISK/ALTERNATIVES: Patient H & P ON CHART H & P H & P on chart and reviewed for co-morbid conditions and appropriate labs. H&P ON CHART: Yes STATUS PREG STATUS ASSESSED: N/A MEDS/ALLERGIES REVIEWED Meds/Allergies Reviewed Medications and Allergies including time and route of recently administered narcotics and sedatives. MEDS/ALLERGIES REVIEWED: Yes ASA RATING ASA RATING: II AIRWAY ASSESSMENT Airway Assessment Airway patency, oral function limitations, presence of caps, crowns, dentures, partials, and ability to extend neck assessed. AIRWAY ASSESSMENT: Yes MALLAMPATI SCORE MALLAMPATI SCORE: II PRE-SEDATION ASSESSMENT PRE-SEDATION ASSESSMENT: Yes VERA ROE MD Aug 22, 2017 09:18
[2017-08-22 09:25] VITALS: BP 140/82
--- NOTE | 2017-08-22 09:29 | CARD ---
APPROVED REPORT Procedure(s) performed: Left heart catheterization, selective coronary angiography and left ventricul ography via right transradial approach Moderate sedation: 36 minutes INDICATION The indication(s) include : Preoperative evaluation and abnormal stress test. PROCEDURE NARRATIVE After explaining the risks, benefits and alternative options, informed consent was obtained from marquis ent. Patient was brought to the cardiac Master Machinist and right wrist was prepped and draped in the usual fashion after confirming a positive modified Ronny's test. Arterial access was obtained in the [facility] radial artery and a 6 Norwegian sheath was inserted. 6 Norwegian JL 3.5 and 6 Norwegian Justin catheters we re used to perform selective angiography of the left and right coronary arteries. 6 Norwegian pigtail c atheter was used to perform left ventriculography. Patient tolerated the procedure well. Hemostasis was achieved using TR band. There were no immediate complications. The following findings were not ed. FINDINGS 1. Hemodynamics: Left ventricular end-diastolic pressure of 14 mmHg. No pullback gradient across th e aortic valve. 2. Left ventriculography: Normal left ventricle systolic function with ejection fraction estimated at 50 minus -55%. No significant mitral regurgitation seen. 3. Coronary angiography: a. The left main coronary artery arose from the left sinus of Valsalva, gave rise to the left anteri or descending and left circumflex arteries and did not show any significant stenosis. b. The left anterior descending artery did not show any significant stenosis. c. The left circumflex artery did not show any significant stenosis. d. The right coronary artery was a large and dominant vessel arising from the right sinus of Valsalv a that did not show any significant stenosis. Conclusion 1. No significant coronary artery disease 2. Normal left ventricle systolic function with ejection fraction estimated at 50-55%. Recommendations Patient is cleared for gastric bypass surgery from cardiac standpoint.
[2017-08-22 10:30] VITALS: BP 125/78
== END 2017-08-22 11:00 | disposition home or self-care (01) ==
LOC: CCL 06:30
PROVIDERS: ATTEND Internal Medicine Cardiovascular Disease
DX: R94.39 Abnormal result of other cardiovascular function study (principal); E78.00 Pure hypercholesterolemia, unspecified; J44.9 Chronic obstructive pulmonary disease, unspecified; E11.9 Type 2 diabetes mellitus without complications; F41.9 Anxiety disorder, unspecified; F32.9 Major depressive disorder, single episode, unspecified; F17.200 Nicotine dependence, unspecified, uncomplicated; Z90.49 Acquired absence of other specified parts of digestive tract; Z79.01 Long term (current) use of anticoagulants; Z86.39 Personal history of other endocrine, nutritional and metabolic disease; Z72.0 Tobacco use
CPT/HCPCS: 36415; 80048; 85027; 85610; 93458; 99152; 99153; C1769; C1892; J1644; J2250; J3010; J3490; Q9967; J2001

== ENCOUNTER 2018-11-28 23:39 | Inpatient (IN) | payer OTHER ==
[~2018-11-28] VITALS: Ht 160 cm; Wt 114.0 kg
[~2018-11-28 23:39] MED LIST changes: +ALBU2.5V8 IH; +ATOR40TA59 PO; +BUPR150T9 PO; +HYDR-3164 PO; -HYDR-971 PO; +INSU100I17 SQ; +INSU100V13 SQ; +METF500T16 PO; -METF500T4 PO; +NAPR-514 PO; -NAPR500T4 PO; +OMEP20CA10 PO; -OMEP20CA9 PO; -PROAIR HFA8.5 GM IH
[2018-11-28] MEDS ORDERED: IPRATRPIUM/ALBUTEROL 0.5/2.5MG 3 ML NEBU. ONE (23:53)
--- NOTE | 2018-11-29 00:22 | PHYS DOC ---
Past Medical History Past Medical History: Asthma, Bronchitis, COPD, Diabetes-Type II Additional Past Medical Histor: Hepatitis C (OKSANA STANFORD APRN) Past Surgical History: Appendectomy, Cholecystectomy, (OKSANA STANFORD APRN) Alcohol Use: None Drug Use: None (OKSANA STANFORD APRN) Adult General Chief Complaint Chief Complaint: SHORTNESS OF BREATH HPI HPI Patient is a 43 year old female with history of COPD, currently smoker, bronchitis, asthma, who presents to the ED today complaining of cough, shortness of breath and subjective fevers for 3 days. Patient is dependent on oxygen 4 L, she states this morning she went and saw her old primary care doctor Maddie Roque who diagnosed with bronchitis and advised her to go to [facility]. She states she did not want to go to , she states she called her current PCP Dr. Daisy Jefferson and the nurse instructed her to come to the ED to be evaluated. (OKSANA STANFORD APRN) Review of Systems Review of Systems Constitutional: Denies fever or chills [] Eyes: Denies change in visual acuity, redness, or eye pain [] HENT: Denies nasal congestion or sore throat [] Respiratory: Reports cough or shortness of breath Cardiovascular: No additional information not addressed in HPI [] GI: Denies abdominal pain, nausea, vomiting, bloody stools or diarrhea [] : Denies dysuria or hematuria [] Musculoskeletal: Denies back pain or joint pain [] Integument: Denies rash or skin lesions [] Neurologic: Denies headache, focal weakness or sensory changes [] All other systems were reviewed and found to be within normal limits, except as documented in this note. (OKSANA STANFORD APRN) Current Medications Current Medications Current Medications Medications (Trade) Dose Ordered Sig/Fazal Start Time Stop Time Status Last Admin Dose Admin Acetaminophen (Tylenol) 650 mg PRN Q4HRS PRN 11/29/18 00:45 11/30/18 00:44 Acetaminophen/ Hydrocodone Bitart (Lortab 7.5-325/ 15ml Oral Solution) 15 ml 1X ONCE 11/29/18 00:30 11/29/18 00:31 DC 11/29/18 02:19 15 ML Albuterol Sulfate (Ventolin Neb Soln) 10 mg 1X ONCE 11/29/18 00:30 11/29/18 00:31 DC 11/29/18 00:53 10 MG Albuterol/ Ipratropium (Duoneb) 3 ml STK-MED ONCE 11/28/18 23:53 11/28/18 23:54 DC Benzonatate (Tessalon Perle) 100 mg PRN TID PRN 11/29/18 00:45 11/29/18 02:20 100 MG Methylprednisolone Sodium Succinate (SOLU-Medrol 125MG VIAL) 125 mg 1X ONCE 11/29/18 00:30 11/29/18 00:31 DC 11/29/18 02:16 125 MG Morphine Sulfate (Morphine Sulfate) 4 mg PRN Q2HR PRN 11/29/18 00:45 11/30/18 00:44 11/29/18 03:37 4 MG Ondansetron HCl (Zofran) 4 mg PRN Q8HRS PRN 11/29/18 00:45 11/30/18 00:44 (ADRIAN MCGOVERN DO) Allergies Allergies Allergies Coded Allergies Type Severity Reaction Last Updated Verified No Known Drug Allergies 11/29/14 No (ADRIAN MCGOVERN DO) Physical Exam Physical Exam Constitutional: Well developed, well nourished, no acute distress, non-toxic appearance. [] HENT: Normocephalic, atraumatic, bilateral external ears normal, oropharynx moist, no oral exudates, nose normal. [] Eyes: PERRLA, EOMI, conjunctiva normal, no discharge. [] Neck: Normal range of motion, no tenderness, supple, no stridor. [] Cardiovascular:Heart rate regular rhythm, no murmur [] Lungs & Thorax: Lungs are tight, minimal air movement throughout. Abdomen: Bowel sounds normal, soft, no tenderness, no masses, no pulsatile masses. [] Skin: Warm, dry, no erythema, no rash. [] Back: No tenderness, no CVA tenderness. [] Extremities: No tenderness, no cyanosis, no clubbing, ROM intact, no edema. [] Neurologic: Alert and oriented X 3, normal motor function, normal sensory function, no focal deficits noted. [] Psychologic: Affect normal, judgement normal, mood normal. [] (OKSANA STANFORD APRN) Current Patient Data Vital Signs Vital Signs Date Time Temp Pulse Resp B/P (MAP) Pulse Ox O2 Delivery O2 Flow Rate FiO2 11/28/18 23:56 91 Nasal Cannula 4.0 11/28/18 23:42 98.7 98 20 119/76 (90) 98.7 (ADRIAN MCGOVERN DO) Lab Values Laboratory Tests Test 11/28/18 23:57 11/29/18 00:48 White Blood Count 5.7 x10^3/uL (4.0-11.0) Red Blood Count 5.20 x10^6/uL (3.50-5.40) Hemoglobin 16.9 g/dL (12.0-15.5) H Hematocrit 51.6 % (36.0-47.0) H Mean Corpuscular Volume 99 fL (79-100) Mean Corpuscular Hemoglobin 33 pg (25-35) Mean Corpuscular Hemoglobin Concent 33 g/dL (31-37) Red Cell Distribution Width 15.7 % (11.5-14.5) H Platelet Count 170 x10^3/uL (140-400) Neutrophils (%) (Auto) 70 % (31-73) Lymphocytes (%) (Auto) 17 % (24-48) L Monocytes (%) (Auto) 10 % (0-9) H Eosinophils (%) (Auto) 3 % (0-3) Basophils (%) (Auto) 0 % (0-3) Neutrophils # (Auto) 3.9 x10^3uL (1.8-7.7) Lymphocytes # (Auto) 0.9 x10^3/uL (1.0-4.8) L Monocytes # (Auto) 0.6 x10^3/uL (0.0-1.1) Eosinophils # (Auto) 0.2 x10^3/uL (0.0-0.7) Basophils # (Auto) 0.0 x10^3/uL (0.0-0.2) Sodium Level 138 mmol/L (136-145) Potassium Level 3.9 mmol/L (3.5-5.1) Chloride Level 97 mmol/L (98-107) L Carbon Dioxide Level 36 mmol/L (21-32) H Anion Gap 5 (6-14) L Blood Urea Nitrogen 7 mg/dL (7-20) Creatinine 0.7 mg/dL (0.6-1.0) Estimated GFR (Cockcroft-Gault) 91.8 BUN/Creatinine Ratio 10 (6-20) Glucose Level 366 mg/dL (70-99) H Calcium Level 8.6 mg/dL (8.5-10.1) Magnesium Level 1.8 mg/dL (1.8-2.4) Total Bilirubin 0.5 mg/dL (0.2-1.0) Aspartate Amino Transferase (AST) 45 U/L (15-37) H Alanine Aminotransferase (ALT) 68 U/L (14-59) H Alkaline Phosphatase 147 U/L (46-116) H Creatine Kinase 172 U/L (26-192) Creatine Kinase MB (Mass) 2.5 ng/mL (0.0-3.6) Creatine Kinase MB Relative Index 1.5 % (0-4) Troponin I Quantitative 0.024 ng/mL (0.000-0.055) DI-Fim-J-Type Natriuretic Peptide 72 pg/mL (0-124) Total Protein 7.1 g/dL (6.4-8.2) Albumin 3.5 g/dL (3.4-5.0) Albumin/Globulin Ratio 1.0 (1.0-1.7) Thyroid Stimulating Hormone (TSH) 3.841 uIU/mL (0.358-3.74) H Urine Collection Type Void Urine Color Yellow Urine Clarity Clear Urine pH 6.0 Urine Specific Mckenzie >=1.030 Urine Protein 30 mg/dL (NEG-TRACE) Urine Glucose (UA) >=1000 mg/dL (NEG) Urine Ketones (Stick) Negative mg/dL (NEG) Urine Blood Negative (NEG) Urine Nitrite Negative (NEG) Urine Bilirubin Negative (NEG) Urine Urobilinogen Dipstick 0.2 mg/dL (0.2 mg/dL) Urine Leukocyte Esterase Negative (NEG) Urine RBC Occ /HPF (0-2) Urine WBC 1-4 /HPF (0-4) Urine Squamous Epithelial Cells Mod /LPF Urine Bacteria 0 /HPF (0-FEW) Urine Yeast Present /HPF Urine Opiates Screen Pos (NEG) Urine Methadone Screen Neg (NEG) Urine Barbiturates Neg (NEG) Urine Phencyclidine Screen Neg (NEG) Urine Amphetamine/Methamphetamine Neg (NEG) Urine Benzodiazepines Screen Pos (NEG) Urine Cocaine Screen Neg (NEG) Urine Cannabinoids Screen Neg (NEG) Urine Ethyl Alcohol Neg (NEG) Laboratory Tests 11/28/18 23:57 Laboratory Tests 11/28/18 23:57 (ADRIAN MCGOVERN DO) Lab Values Laboratory Tests Test 11/28/18 23:57 White Blood Count 5.7 x10^3/uL (4.0-11.0) Red Blood Count 5.20 x10^6/uL (3.50-5.40) Hemoglobin 16.9 g/dL (12.0-15.5) H Hematocrit 51.6 % (36.0-47.0) H Mean Corpuscular Volume 99 fL (79-100) Mean Corpuscular Hemoglobin 33 pg (25-35) Mean Corpuscular Hemoglobin Concent 33 g/dL (31-37) Red Cell Distribution Width 15.7 % (11.5-14.5) H Platelet Count 170 x10^3/uL (140-400) Neutrophils (%) (Auto) 70 % (31-73) Lymphocytes (%) (Auto) 17 % (24-48) L Monocytes (%) (Auto) 10 % (0-9) H Eosinophils (%) (Auto) 3 % (0-3) Basophils (%) (Auto) 0 % (0-3) Neutrophils # (Auto) 3.9 x10^3uL (1.8-7.7) Lymphocytes # (Auto) 0.9 x10^3/uL (1.0-4.8) L Monocytes # (Auto) 0.6 x10^3/uL (0.0-1.1) Eosinophils # (Auto) 0.2 x10^3/uL (0.0-0.7) Basophils # (Auto) 0.0 x10^3/uL (0.0-0.2) Sodium Level 138 mmol/L (136-145) Potassium Level 3.9 mmol/L (3.5-5.1) Chloride Level 97 mmol/L (98-107) L Carbon Dioxide Level 36 mmol/L (21-32) H Anion Gap 5 (6-14) L Blood Urea Nitrogen 7 mg/dL (7-20) Creatinine 0.7 mg/dL (0.6-1.0) Estimated GFR (Cockcroft-Gault) 91.8 BUN/Creatinine Ratio 10 (6-20) Glucose Level 366 mg/dL (70-99) H Calcium Level 8.6 mg/dL (8.5-10.1) Magnesium Level 1.8 mg/dL (1.8-2.4) Total Bilirubin 0.5 mg/dL (0.2-1.0) Aspartate Amino Transferase (AST) 45 U/L (15-37) H Alanine Aminotransferase (ALT) 68 U/L (14-59) H Alkaline Phosphatase 147 U/L (46-116) H Creatine Kinase 172 U/L (26-192) Creatine Kinase MB (Mass) 2.5 ng/mL (0.0-3.6) Creatine Kinase MB Relative Index 1.5 % (0-4) Troponin I Quantitative 0.024 ng/mL (0.000-0.055) HE-Iwe-F-Type Natriuretic Peptide 72 pg/mL (0-124) Total Protein 7.1 g/dL (6.4-8.2) Albumin 3.5 g/dL (3.4-5.0) Albumin/Globulin Ratio 1.0 (1.0-1.7) Thyroid Stimulating Hormone (TSH) 3.841 uIU/mL (0.358-3.74) H Laboratory Tests 11/28/18 23:57 Laboratory Tests 11/28/18 23:57 (OKSANA STANFORD APRN) EKG EKG [] (OKSANA STANFORD APRN) Radiology/Procedures Radiology/Procedures [] (OKSANA STANFORD APRN) Course & Med Decision Making Course & Med Decision Making Pertinent Labs and Imaging studies reviewed. (See chart for details) This is a COPD patient current smoker presenting to the ED today with cough or shortness of breath for 3 days. Patient is dependent on oxygen 4 L, she arrives in the ED with no oxygen, she left her oxygen tank at home. Her O2 sats were around 70s. Patient was put on 4 L of oxygen, current saturations around 91%. Given a DuoNeb treatment, she states she is not feeling any better. Given a one- hour treatment and Solu-Medrol. Chest x-ray interpreted by Dr. Mcgovern was noted for right lobe pneumonia. Patient was started on Rocephin and azithromycin. Patient was admitted under Dr. Stevenson training and development professional for Daisy Jefferson (OKSANA STANFORD APRN) Dragon Disclaimer Dragon Disclaimer This electronic medical record was generated, in whole or in part, using a voice recognition dictation system. (OKSANA STANFORD APRN) Departure Departure Impression: Primary Impression: COPD with acute exacerbation Additional Impressions: CAP (community acquired pneumonia) Influenza A Disposition: ADMITTED INPATIENT Condition: STABLE Referrals: MANUEL JEFFERSON MD (PCP) Attending Signature Attending Signature I have reviewed the PA/GENERAL DOC's note and plan of care. I was available for consultation as needed during the patient's visit in the emergency department. I agree with the clinical impression, plan, and disposition. (ADRIAN MCGOVERN DO) Problem Qualifiers Additional Impressions: CAP (community acquired pneumonia) Laterality: right Lung location: lower lobe of lung Qualified Codes: J18.1 - Lobar pneumonia, unspecified organism OKSANA STANFORD APRN Nov 29, 2018 00:22 ADRIAN MCGOVERN DO Nov 29, 2018 03:43
[2018-11-29 00:24] LABS: BASO % 0 % (0-3); EOS # 0.2 x10^3/uL (0.0-0.7); EOS % 3 % (0-3); HEMATOCRIT 51.6 % (36.0-47.0); HEMOGLOBIN 16.9 g/dL (12.0-15.5); LYMPH # 0.9 x10^3/uL (1.0-4.8); LYMPH % 17 % (24-48); MEAN CORPUSCULAR HEMOGLOBIN 33 pg (25-35); MEAN CORPUSCULAR HGB CONC 33 g/dL (31-37); MEAN CORPUSCULAR VOLUME 99 fL (79-100); MONO # 0.6 x10^3/uL (0.0-1.1); MONO % 10 % (0-9); NEUT # 3.9 x10^3uL (1.8-7.7); NEUT % 70 % (31-73); PLATELET COUNT 170 x10^3/uL (140-400); RED CELL DISTRIBUTION WIDTH 15.7 % (11.5-14.5); WHITE BLOOD COUNT 5.7 x10^3/uL (4.0-11.0)
[2018-11-29] MEDS ORDERED: ALBUTEROL SULFATE 2.5 MG/3 ML NEBU. CONT NEB ONE (00:30)
[2018-11-29] MEDS ORDERED: HYDROcodon/APAP 7.5/325MG ORAL 15 ML SOLUTION PO ONE (00:30)
[2018-11-29] MEDS ORDERED: methylPREDNISolone SOD SUCC PF 125 MG/2 ML VIAL. IV ONE (00:30)
[2018-11-29 00:37] LABS: CALCIUM 8.6 mg/dL (8.5-10.1); CREATININE 0.7 mg/dL (0.6-1.0); GFR 91.8; POTASSIUM 3.9 mmol/L (3.5-5.1)
[2018-11-29 00:42] LABS: ALBUMIN 3.5 g/dL (3.4-5.0); MAGNESIUM 1.8 mg/dL (1.8-2.4); TOTAL BILIRUBIN 0.5 mg/dL (0.2-1.0); TOTAL PROTEIN 7.1 g/dL (6.4-8.2)
[2018-11-29] MEDS ORDERED: ONDANSETRON PF 4 MG/2 ML VIAL. IV PRN (00:45)
[2018-11-29] MEDS ORDERED: BENZONATATE 100 MG CAPSULE. PO PRN (00:45)
[2018-11-29] MEDS ORDERED: ACETAMINOPHEN 325 MG TABLET. PO PRN (00:45)
[2018-11-29] MEDS ORDERED: DEXTROSE 50% 25 GM / 50ML DISP.SYRIN. IV PRN (01:00)
[2018-11-29] MEDS ORDERED: AZITHRMYCN 500MG IVPB FOR OMNI 250 ML IV ONE (01:00)
[2018-11-29] MEDS ORDERED: cefTRIAXone IV Push 1 GM VIAL. IVP ONE (01:00)
[2018-11-29 01:05] LABS: BILIRUBIN,URINE NEGATIVE (NEG); CLARITY,URINE CLEAR; COLOR,URINE YELLOW; NITRITE,URINE NEGATIVE (NEG); PROTEIN,URINE 30 mg/dL (NEG-TRACE); UROBILINOGEN,URINE 0.2 mg/dL (0.2 mg/dL)
--- NOTE | 2018-11-29 01:16 | RAD ---
Single view chest dated 11/29/2018. Comparison made to 12/19/2016. CLINICAL INDICATION: Cough and shortness of breath. FINDINGS: Single upright portable exam performed. Heart and mediastinal contours within normal limits. Lungs are somewhat hyperinflated. There is some patchy and linear perihilar opacities, right greater than left. No pleural effusion or pneumothorax. IMPRESSION: Patchy perihilar airspace disease, atelectasis versus pneumonia. Electronically signed by: Jose David Nuñez MD (11/29/2018 1:13 AM) [facility]
[2018-11-29 01:21] LABS: BARBITURATES NEG (NEG); BENZODIAZEPINES POS (NEG); CANNABINOIDS NEG (NEG); COCAINE NEG (NEG); METHADONE NEG (NEG); OPIATES POS (NEG); PHENCYCLIDINE NEG (NEG)
[2018-11-29] MEDS ORDERED: INSULIN REGULAR 100 UNIT/ML 3ML VIAL. IV ONE (01:30)
[2018-11-29 01:42] LABS: AMPHETAMINE/METHAMPHETAMINE NEG (NEG)
[2018-11-29 02:02] LABS: RBC,URINE OCC /HPF (0-2)
[2018-11-29 02:03] LABS: BACTERIA,URINE 0 /HPF (0-FEW); SQUAMOUS EPITHELIAL CELL,UR MOD /LPF; YEAST,URINE PRESENT /HPF
[2018-11-29 02:30] VITALS: BP 112/66
[2018-11-29] MEDS ORDERED: IPRA4AER IH (03:27)
[2018-11-29] MEDS ORDERED: OXYC1TAB19 PO (03:27)
[2018-11-29] MEDS: MORPHINE SULFATE 4 MG/ML VIAL. IV PRN ×3 (03:37→07:57)
[2018-11-29 03:42] LABS: INFLUENZA A PATIENT POSITIVE (NEGATIVE); INFLUENZA B PATIENT NEGATIVE (NEGATIVE)
[2018-11-29] MEDS ORDERED: guaiFENesin DM 600/30MG 1 TAB TAB.ER.12H PO PRN (04:00)
[2018-11-29] MEDS ORDERED: ALBUTEROL SULFATE 2.5 MG/3 ML NEBU. NEB PRN (04:00)
[2018-11-29] MEDS ORDERED: OSELTAMIVIR 75 MG CAPSULE PO ONE (04:00)
--- NOTE | 2018-11-29 06:46 | EKG ---
[facility] [address] [place] [address] Test Date: 2018-11-29 Test Time: 00:12:59 Pat Name: SHAHNAZ PELAEZ Department: Room: [facility] Gender: F Social Media Marketing Analyst: : 1975 Requested By: OKSANA STANFORD Order Number: [id number] Reading MD: Giancarlo Fox MD Measurements Intervals [place] Rate: 97 P: 51 WV: 120 QRS: 54 QRSD: 92 T: 52 QT: 360 QTc: 462 Interpretive Statements SINUS RHYTHM Electronically Signed On 11-30-2018 11:33:53 SLOTTER OPERATOR HELPER by Giancarlo Fox MD
[2018-11-29 07:00] VITALS: BP 133/85
[2018-11-29] MEDS ORDERED: ESCITALOPRAM OX20 MG PO (08:21)
[2018-11-29] MEDS: IPRATRPIUM/ALBUTEROL 0.5/2.5MG 3 ML NEBU. NEB SCH ×4 (08:21→21:44)
[2018-11-29] MEDS ORDERED: OXYC10TA PO (08:21)
[2018-11-29] MEDS ORDERED: NON FORMULARY ITEM (Ipratropium/Albuterol Sulfate (Combivent Respimat Inhal) 2 INH) IH PRN (08:30)
--- NOTE | 2018-11-29 08:31 | PDOC ---
PROGRESS NOTES Subjective Subjective Patient denies significant SOA at present. Objective Objective Vital Signs Date Time Temp Pulse Resp B/P (MAP) Pulse Ox O2 Delivery O2 Flow Rate FiO2 11/29/18 08:21 Nasal Cannula 4.0 11/29/18 07:57 18 91 11/29/18 07:00 98.1 91 133/85 (101) 98.1 Intake and Output 11/29/18 07:00 Intake Total 0 ml Balance 0 ml Intake Oral 0 ml Physical Exam Abdomen: Normal bowel sounds, Soft, No tenderness Heart: Regular rate Extremities: No edema General: Alert, Oriented X3, No acute distress Lungs: Other (BS moderately decreased throughout, no wheezes heard, no cough with exam) Assessment Assessment Problems Medical Problems: (1) CAP (community acquired pneumonia) Status: Acute (2) COPD with acute exacerbation Status: Acute (3) Influenza A Status: Acute Plan Plan of Care 1. Influenza with AE COPD, CAP and chronic respiratory failure - CXR shows possible atypical infiltrate and patient is positive for Flu A. Not hypoxic on her usual 4L O2 per NC. Will treat with Tamiflu, abx, nebs and Solumedrol and follow response to this. 2. DM2 - hyperglycemic, will give insulins and use SS as needed. 3. bipolar mood disorder - stable, continue home medications. 4. chronic pain - stable, continue her usual Oxycodone, IV Morphine d/c. 5. tobaccoism - use nicotine patch while she is here. Patient not interested in smoking cessation at this time. Comment Review of Relevant I have reviewed the following items suyapa (where applicable) has been applied. Labs Laboratory Tests Test 11/28/18 23:57 11/29/18 00:48 11/29/18 02:32 11/29/18 07:32 White Blood Count 5.7 x10^3/uL (4.0-11.0) Red Blood Count 5.20 x10^6/uL (3.50-5.40) Hemoglobin 16.9 g/dL (12.0-15.5) Hematocrit 51.6 % (36.0-47.0) Mean Corpuscular Volume 99 fL (79-100) Mean Corpuscular Hemoglobin 33 pg (25-35) Mean Corpuscular Hemoglobin Concent 33 g/dL (31-37) Red Cell Distribution Width 15.7 % (11.5-14.5) Platelet Count 170 x10^3/uL (140-400) Neutrophils (%) (Auto) 70 % (31-73) Lymphocytes (%) (Auto) 17 % (24-48) Monocytes (%) (Auto) 10 % (0-9) Eosinophils (%) (Auto) 3 % (0-3) Basophils (%) (Auto) 0 % (0-3) Neutrophils # (Auto) 3.9 x10^3uL (1.8-7.7) Lymphocytes # (Auto) 0.9 x10^3/uL (1.0-4.8) Monocytes # (Auto) 0.6 x10^3/uL (0.0-1.1) Eosinophils # (Auto) 0.2 x10^3/uL (0.0-0.7) Basophils # (Auto) 0.0 x10^3/uL (0.0-0.2) Sodium Level 138 mmol/L (136-145) Potassium Level 3.9 mmol/L (3.5-5.1) Chloride Level 97 mmol/L (98-107) Carbon Dioxide Level 36 mmol/L (21-32) Anion Gap 5 (6-14) Blood Urea Nitrogen 7 mg/dL (7-20) Creatinine 0.7 mg/dL (0.6-1.0) Estimated GFR (Cockcroft-Gault) 91.8 BUN/Creatinine Ratio 10 (6-20) Glucose Level 366 mg/dL (70-99) Calcium Level 8.6 mg/dL (8.5-10.1) Magnesium Level 1.8 mg/dL (1.8-2.4) Total Bilirubin 0.5 mg/dL (0.2-1.0) Aspartate Amino Transf (AST/SGOT) 45 U/L (15-37) Alanine Aminotransferase (ALT/SGPT) 68 U/L (14-59) Alkaline Phosphatase 147 U/L (46-116) Creatine Kinase 172 U/L (26-192) Creatine Kinase MB (Mass) 2.5 ng/mL (0.0-3.6) Creatine Kinase MB Relative Index 1.5 % (0-4) Troponin I Quantitative 0.024 ng/mL (0.000-0.055) NW-Ifn-I-Type Natriuretic Peptide 72 pg/mL (0-124) Total Protein 7.1 g/dL (6.4-8.2) Albumin 3.5 g/dL (3.4-5.0) Albumin/Globulin Ratio 1.0 (1.0-1.7) Thyroid Stimulating Hormone (TSH) 3.841 uIU/mL (0.358-3.74) Urine Collection Type Void Urine Color Yellow Urine Clarity Clear Urine pH 6.0 Urine Specific [place] >=1.030 Urine Protein 30 mg/dL (NEG-TRACE) Urine Glucose (UA) >=1000 mg/dL (NEG) Urine Ketones (Stick) Negative mg/dL (NEG) Urine Blood Negative (NEG) Urine Nitrite Negative (NEG) Urine Bilirubin Negative (NEG) Urine Urobilinogen Dipstick 0.2 mg/dL (0.2 mg/dL) Urine Leukocyte Esterase Negative (NEG) Urine RBC Occ /HPF (0-2) Urine WBC 1-4 /HPF (0-4) Urine Squamous Epithelial Cells Mod /LPF Urine Bacteria 0 /HPF (0-FEW) Urine Yeast Present /HPF Urine Opiates Screen Pos (NEG) Urine Methadone Screen Neg (NEG) Urine Barbiturates Neg (NEG) Urine Phencyclidine Screen Neg (NEG) Urine Amphetamine/Methamphetamine Neg (NEG) Urine Benzodiazepines Screen Pos (NEG) Urine Cocaine Screen Neg (NEG) Urine Cannabinoids Screen Neg (NEG) Urine Ethyl Alcohol Neg (NEG) Influenza Type A Antigen Positive (NEGATIVE) Influenza Type B Antigen Negative (NEGATIVE) Glucose (Fingerstick) 401 mg/dL (70-99) Laboratory Tests Test 11/28/18 23:57 11/29/18 00:48 11/29/18 02:32 11/29/18 07:32 White Blood Count 5.7 x10^3/uL (4.0-11.0) Red Blood Count 5.20 x10^6/uL (3.50-5.40) Hemoglobin 16.9 g/dL (12.0-15.5) Hematocrit 51.6 % (36.0-47.0) Mean Corpuscular Volume 99 fL (79-100) Mean Corpuscular Hemoglobin 33 pg (25-35) Mean Corpuscular Hemoglobin Concent 33 g/dL (31-37) Red Cell Distribution Width 15.7 % (11.5-14.5) Platelet Count 170 x10^3/uL (140-400) Neutrophils (%) (Auto) 70 % (31-73) Lymphocytes (%) (Auto) 17 % (24-48) Monocytes (%) (Auto) 10 % (0-9) Eosinophils (%) (Auto) 3 % (0-3) Basophils (%) (Auto) 0 % (0-3) Neutrophils # (Auto) 3.9 x10^3uL (1.8-7.7) Lymphocytes # (Auto) 0.9 x10^3/uL (1.0-4.8) Monocytes # (Auto) 0.6 x10^3/uL (0.0-1.1) Eosinophils # (Auto) 0.2 x10^3/uL (0.0-0.7) Basophils # (Auto) 0.0 x10^3/uL (0.0-0.2) Sodium Level 138 mmol/L (136-145) Potassium Level 3.9 mmol/L (3.5-5.1) Chloride Level 97 mmol/L (98-107) Carbon Dioxide Level 36 mmol/L (21-32) Anion Gap 5 (6-14) Blood Urea Nitrogen 7 mg/dL (7-20) Creatinine 0.7 mg/dL (0.6-1.0) Estimated GFR (Cockcroft-Gault) 91.8 BUN/Creatinine Ratio 10 (6-20) Glucose Level 366 mg/dL (70-99) Calcium Level 8.6 mg/dL (8.5-10.1) Magnesium Level 1.8 mg/dL (1.8-2.4) Total Bilirubin 0.5 mg/dL (0.2-1.0) Aspartate Amino Transf (AST/SGOT) 45 U/L (15-37) Alanine Aminotransferase (ALT/SGPT) 68 U/L (14-59) Alkaline Phosphatase 147 U/L (46-116) Creatine Kinase 172 U/L (26-192) Creatine Kinase MB (Mass) 2.5 ng/mL (0.0-3.6) Creatine Kinase MB Relative Index 1.5 % (0-4) Troponin I Quantitative 0.024 ng/mL (0.000-0.055) PI-Iex-G-Type Natriuretic Peptide 72 pg/mL (0-124) Total Protein 7.1 g/dL (6.4-8.2) Albumin 3.5 g/dL (3.4-5.0) Albumin/Globulin Ratio 1.0 (1.0-1.7) Thyroid Stimulating Hormone (TSH) 3.841 uIU/mL (0.358-3.74) Urine Collection Type Void Urine Color Yellow Urine Clarity Clear Urine pH 6.0 Urine Specific [place] >=1.030 Urine Protein 30 mg/dL (NEG-TRACE) Urine Glucose (UA) >=1000 mg/dL (NEG) Urine Ketones (Stick) Negative mg/dL (NEG) Urine Blood Negative (NEG) Urine Nitrite Negative (NEG) Urine Bilirubin Negative (NEG) Urine Urobilinogen Dipstick 0.2 mg/dL (0.2 mg/dL) Urine Leukocyte Esterase Negative (NEG) Urine RBC Occ /HPF (0-2) Urine WBC 1-4 /HPF (0-4) Urine Squamous Epithelial Cells Mod /LPF Urine Bacteria 0 /HPF (0-FEW) Urine Yeast Present /HPF Urine Opiates Screen Pos (NEG) Urine Methadone Screen Neg (NEG) Urine Barbiturates Neg (NEG) Urine Phencyclidine Screen Neg (NEG) Urine Amphetamine/Methamphetamine Neg (NEG) Urine Benzodiazepines Screen Pos (NEG) Urine Cocaine Screen Neg (NEG) Urine Cannabinoids Screen Neg (NEG) Urine Ethyl Alcohol Neg (NEG) Influenza Type A Antigen Positive (NEGATIVE) Influenza Type B Antigen Negative (NEGATIVE) Glucose (Fingerstick) 401 mg/dL (70-99) Medications Current Medications Albuterol/ Ipratropium (Duoneb) 3 ml STK-MED ONCE .ROUTE ; Start 11/28/18 at 23: 53; Stop 11/28/18 at 23:54; Status DC Albuterol Sulfate (Ventolin Neb Soln) 10 mg 1X ONCE CONT NEB Last administered on 11/29/18at 00:53; Start 11/29/18 at 00:30; Stop 11/29/18 at 00:31; Status DC Methylprednisolone Sodium Succinate (SOLU-Medrol 125MG VIAL) 125 mg 1X ONCE IV Last administered on 11/29/18at 02:16; Start 11/29/18 at 00:30; Stop 11/29/18 at 00:31; Status DC Acetaminophen/ Hydrocodone Bitart (Lortab 7.5-325/ 15ml Oral Solution) 15 ml 1X ONCE PO Last administered on 11/29/18at 02:19; Start 11/29/18 at 00:30; Stop 11/29/18 at 00:31; Status DC Ondansetron HCl (Zofran) 4 mg PRN Q8HRS PRN IV NAUSEA/VOMITING 1ST CHOICE; Start 11/29/18 at 00:45; Stop 11/30/18 at 00:44 Morphine Sulfate (Morphine Sulfate) 4 mg PRN Q2HR PRN IV SEVERE PAIN Last administered on 11/29/18at 07:57; Start 11/29/18 at 00:45; Stop 11/30/18 at 00:44 Acetaminophen (Tylenol) 650 mg PRN Q4HRS PRN PO FEVER; Start 11/29/18 at 00:45; Stop 11/30/18 at 00:44 Albuterol/ Ipratropium (Duoneb) 3 ml RTQID NEB Last administered on 11/29/18at 08 :21; Start 11/29/18 at 08:00; Stop 11/30/18 at 07:59 Ceftriaxone Sodium (Rocephin) 1 gm 1X ONCE IVP Last administered on 11/29/18at 02:23; Start 11/29/18 at 01:00; Stop 11/29/18 at 01:01; Status DC Azithromycin 250 ml @ 250 mls/hr 1X ONCE IV Last administered on 11/29/18at 02: 25; Start 11/29/18 at 01:00; Stop 11/29/18 at 01:59; Status DC Benzonatate (Tessalon Perle) 100 mg PRN TID PRN PO COUGH 1ST CHOICE Last administered on 11/29/18at 02:20; Start 11/29/18 at 00:45 Insulin Human Regular (HumuLIN R VIAL) 6 unit 1X ONCE IV Last administered on 11/29/18at 02:21; Start 11/29/18 at 01:30; Stop 11/29/18 at 01:31; Status DC Insulin Human Lispro (HumaLOG) 0-9 UNITS TIDWMEALS SQ ; Start 11/29/18 at 08:00 Dextrose (Dextrose 50%-Water Syringe) 12.5 gm PRN Q15MIN PRN IV SEE COMMENTS; Start 11/29/18 at 01:00 Oseltamivir Phosphate (Tamiflu) 75 mg 1X ONCE PO Last administered on at 04:16; Start 11/29/18 at 04:00; Stop 11/29/18 at 04:01; Status DC Guaifenesin (MUCINEX ER with DM) 1 tab PRN BID PRN PO COUGH 2ND CHOICE Last administered on 11/29/18at 04:16; Start 11/29/18 at 04:00 Albuterol Sulfate (Ventolin Neb Soln) 2.5 mg PRN Q6HRS PRN NEB SHORTNESS OF BREATH; Start 11/29/18 at 04:00 Atorvastatin Calcium (Lipitor) 40 mg QHS PO ; Start 11/29/18 at 21:00; Status UNV Cetirizine HCl (ZyrTEC) 10 mg DAILY PO ; Start 11/29/18 at 09:00; Status UNV Non-Formulary Medication (Diazepam ) 10 mg TID PO ; Start 11/29/18 at 09:00; Status UNV Non-Formulary Medication (Escitalopram Oxalate ) 1 tab DAILY PO ; Start 11/29/18 at 09:00; Status UNV Non-Formulary Medication (Fluticasone Propionate (Flovent 100MCG Diskus)) 2 puff BID IH ; Start 11/29/18 at 09:00; Status UNV Non-Formulary Medication (Insulin Aspart (Novolog Flexpen)) 100 unit TIDAC SQ ; Start 11/29/18 at 11:30; Status UNV Non-Formulary Medication (Insulin Detemir (Levemir)) 100 unit BID SQ ; Start 11/29/18 at 09:00; Status UNV Non-Formulary Medication (Ipratropium/ Albuterol Sulfate (Combivent Respimat Inhal)) 2 inh QID PRN IH SHORTNESS OF BREATH; Start 11/29/18 at 08:30; Status UNV Non-Formulary Medication (Naproxen ) 1 tab BID PO ; Start 11/29/18 at 09:00; Status UNV Non-Formulary Medication (Omeprazole ) 1 cap BID PO ; Start 11/29/18 at 09:00; Status UNV Non-Formulary Medication (Oxycodone Hcl (Oxycodone Hcl Immed.release)) 10 mg PRN BID PRN PO PAIN; Start 11/29/18 at 08:30; Status UNV Active Scripts Active Escitalopram Oxalate 20 Mg Tablet 1 Tab PO DAILY 30 Days Oxycodone Hcl Immed.release (Oxycodone Hcl) 10 Mg Tablet 10 Mg PO PRN BID PRN 30 Days Naproxen 500 Mg Tablet 1 Tab PO BID Omeprazole 20 Mg Capsule.dr 1 Cap PO BID Flovent 100MCG Diskus (Fluticasone Propionate) 100 Mcg Disk.w.dev 2 Puff IH BID Cetirizine Hcl 10 Mg Tablet 1 Tab PO DAILY Reported Combivent Respimat Inhal (Ipratropium/Albuterol Sulfate) 4 Gm Aer.w.adap 2 Inh IH QID PRN Atorvastatin Calcium 40 Mg Tablet 1 Tab PO QHS Levemir (Insulin Detemir) 100 Unit/1 Ml Vial 100 Unit SQ BID am and pm Novolog Flexpen (Insulin Aspart) 100 Unit/1 Ml Insuln.pen 100 Unit SQ TIDAC Proair Hfa Inhaler (Albuterol Sulfate) 8.5 Gm Hfa.aer.ad 2 Puff IH PRN Q4-6HRS PRN Diazepam 10 Mg Tablet 10 Mg PO TID Vitals/I & O Vital Sign - Last 24 Hours 11/28/18 11/28/18 11/29/18 11/29/18 23:42 23:56 00:16 00:44 Temp 98.7 98.7 Pulse 98 96 94 Resp 20 18 20 B/P (MAP) 119/76 (90) 120/67 (84) 119/71 (87) Pulse Ox 93 91 92 93 O2 Delivery Nasal Cannula Nasal Cannula Nasal Cannula Nasal Cannula O2 Flow Rate 4.0 4.0 4.0 4.0 11/29/18 11/29/18 11/29/18 11/29/18 00:53 02:05 02:19 02:30 Temp 98.2 98.2 Pulse 98 105 Resp 20 18 20 B/P (MAP) 114/72 (86) 112/66 (81) Pulse Ox 92 94 93 O2 Delivery Nasal Cannula Nasal Cannula Nasal Cannula Nasal Cannula O2 Flow Rate 4.0 4.0 4.0 4.0 11/29/18 11/29/18 11/29/18 11/29/18 02:35 02:50 03:19 03:37 Pulse 98 Resp 20 B/P (MAP) 132/73 (92) Pulse Ox 93 O2 Delivery Nasal Cannula Nasal Cannula Nasal Cannula Nasal Cannula O2 Flow Rate 4.0 4.0 4.0 4.0 11/29/18 11/29/18 11/29/18 11/29/18 05:52 06:23 07:00 07:57 Temp 98.1 98.1 Pulse 91 Resp 18 18 B/P (MAP) 133/85 (101) Pulse Ox 91 91 O2 Delivery Nasal Cannula Nasal Cannula Nasal Cannula Nasal Cannula O2 Flow Rate 4.0 4.0 4.0 4.0 11/29/18 08:21 O2 Delivery Nasal Cannula O2 Flow Rate 4.0 Intake and Output 11/28/18 11/28/18 11/29/18 15:00 23:00 07:00 Intake Total 0 ml Balance 0 ml ANY JACKSON MD Nov 29, 2018 08:31
[2018-11-29] MEDS: CITALOPRAM 20 MG TABLET. PO SCH (08:59)
[2018-11-29] MEDS: NAPROXEN 500 MG TABLET PO SCH ×2 (08:59→21:00)
[2018-11-29] MEDS: PANTOPRAZOLE 40 MG TABLET.DR. PO SCH ×2 (08:59→17:19)
[2018-11-29] MEDS: CETIRIZINE HCL 10 MG TABLET. PO SCH (09:00)
[2018-11-29] MEDS: diazePAM 5 MG TABLET PO SCH ×3 (09:00→21:25)
[2018-11-29] MEDS: BUDESONIDE 0.5 MG/2 ML NEBU. NEB SCH ×2 (09:00→21:45)
[2018-11-29] MEDS ORDERED: NON FORMULARY ITEM (Fluticasone Propionate (Flovent 100MCG Diskus) 2 PUFF) IH SCH (09:00)
[2018-11-29] MEDS: NICOTINE 21MG PATCH. TD SCH (09:00)
[2018-11-29] MEDS: methylPREDNISolone SOD SUCC PF 40 MG/ML VIAL. IV SCH ×3 (09:01→21:25)
--- NOTE | 2018-11-29 09:02 | NUR ---
IP: Pt is influenza + requiring droplet precautions for 5 days and 24 hours without a fever, whichever is longest
[2018-11-29] MEDS: INSULIN LISPRO 300 UNITS/3 ML INSULN.PEN. SQ SCH ×5 (09:17→17:24)
--- NOTE | 2018-11-29 09:36 | HP ---
ADMIT DATE: 11/29/2018 CHIEF COMPLAINT: Shortness of breath. HISTORY OF PRESENT ILLNESS: The patient is a 43-year-old female with chronic respiratory failure due to COPD, who presented to the Emergency Room with the above complaint. She reported several-day history of increasing shortness of breath. She was using her usual oxygen at 4 liters per nasal cannula and taking her inhalers and breathing treatments, but her symptoms persisted, so she came to the Emergency Department. Evaluation there included a chest x-ray, which showed patchy perihilar airspace disease. The patient was positive for influenza A. Treatment was started and she was admitted for further care. PAST MEDICAL HISTORY: Chronic respiratory failure due to COPD; ongoing tobaccoism; diabetes mellitus type 2, insulin-dependent; history of hepatitis C; osteoarthritis and degenerative disk disease with chronic pain; bipolar mood disorder; allergic rhinitis. PAST SURGICAL HISTORY: section, laparoscopic appendectomy, laparoscopic cholecystectomy. ALLERGIES: The patient has no known drug allergies. HOME MEDICATIONS: Albuterol p.r.n., atorvastatin 40 mg daily, cetirizine 10 mg daily, diazepam 10 mg t.i.d., escitalopram 20 mg daily, Flovent 2 puffs b.i.d., NovoLog insulin 100 units t.i.d. a.c., Levemir insulin 100 units b.i.d., Combivent inhaler, naproxen 500 mg b.i.d., omeprazole 20 mg b.i.d., oxycodone 10 mg b.i.d. p.r.n. FAMILY HISTORY: Noncontributory. SOCIAL HISTORY: The patient is and lives at home with her . She continues to smoke cigarettes one or more packs daily. She does not drink alcohol to excess. She is a homemaker. She is disabled due to her mental health issues. REVIEW OF SYSTEMS: The patient may have had some subjective fevers recently. She denies chest pain or palpitations. She did receive a flu shot in the fall. She denies abdominal pain, nausea or vomiting. Her mood has been pretty good with her usual medication. Her chronic pain has been stable. Her blood sugars are elevated at times when she checks them. PHYSICAL EXAMINATION: GENERAL: The patient is alert and oriented x 3, resting comfortably in bed, in no acute distress. HEENT: PERRL, EOMI, sclerae clear. Oropharynx: Mucous membranes moist. NECK: Supple, without lymphadenopathy. CHEST: Breath sounds are moderately decreased throughout. No wheezes heard. No cough during exam. CARDIOVASCULAR: Regular rhythm without murmur. ABDOMEN: Soft, nontender, normoactive bowel sounds are present. EXTREMITIES: Bilateral lower extremities are without edema. ASSESSMENT AND PLAN: 1. Influenza A with acute exacerbation of chronic obstructive pulmonary disease, community-acquired pneumonia and chronic respiratory failure. The patient is not hypoxic on her usual oxygen 4 liters per nasal cannula. We will treat her with Tamiflu, antibiotics, nebulized breathing treatments and Solu-Medrol and follow her response to these treatments. 2. Diabetes mellitus type 2. The patient's blood sugar is significantly elevated due at least in part to the high dose of Solu-Medrol she received in the Emergency Department. We will resume her home insulins and use sliding scale as needed. 3. Bipolar mood disorder. This appears stable. Continue her home medications. 4. Chronic pain. This appears stable. Continue her usual oral oxycodone. The IV morphine has been discontinued. 5. Tobaccoism. A nicotine patch has been ordered for use while she is here. She is not interested in smoking cessation at this time. ANY JACKSON MD DR: LUCY/vangie JOB#: [id number] / [id number] DENNIS
[2018-11-29] MEDS: oxyCODONE IR 5 MG TABLET PO PRN ×2 (10:49→19:28)
[2018-11-29 11:00] VITALS: BP 142/66
--- NOTE | 2018-11-29 11:55 | NUR ---
Patient's blood glucose prebreakfast was 401 mg/dl, relayed to Dr. Coto at 0800 who was rounding the floor; orders were placed for patient's insulin.
--- NOTE | 2018-11-29 12:07 | NUR ---
SW following. Discussed with RN, pt is from home with family, has CPAP and O2 at home already. No SW needs at this time. SW will continue to follow.
[2018-11-29] MEDS: INSULIN GLARGINE 300 UNITS/3 ML INSULN.PEN. SQ SCH ×2 (12:46→21:34)
--- NOTE | 2018-11-29 12:52 | NUR ---
Patient's blood glucose prelunch was 460mg/dl, relayed result to Dr. Coto at 1200, instructed to give the standing insulin lispro 100 units, no additional insulin sliding scale; will continue to monitor.
[2018-11-29 15:00] VITALS: BP 143/56
[2018-11-29 19:48] VITALS: BP 102/79
[2018-11-29] MEDS ORDERED: cefTRIAXone IV Push 1 GM VIAL. IVP SCH (21:00)
[2018-11-29] MEDS ORDERED: ATORVASTATIN CALCIUM 40 MG TABLET. PO SCH (21:00)
[2018-11-29] MEDS ORDERED: AZITHROMYCIN 250 MG TABLET. PO SCH (21:00)
[2018-11-29] MEDS: LACTOBACILLUS RHAMNOSUS GG 1 CAPSULE. PO SCH (21:24)
[2018-11-29] MEDS: OSELTAMIVIR 75 MG CAPSULE PO SCH (21:25)
--- NOTE | 2018-11-29 21:48 | NUR ---
pt refused cpap, educated the importance of having it, verbalized understanding but she stated she doesn't like to use it. pt is currently on O2 at 4Lpm via nasal cannula. will continue to monitor pt.
[2018-11-29 23:23] VITALS: BP 129/79
[2018-11-30 03:35] VITALS: BP 129/86
[2018-11-30] MEDS: methylPREDNISolone SOD SUCC PF 40 MG/ML VIAL. IV SCH (06:00)
[2018-11-30] MEDS: oxyCODONE IR 5 MG TABLET PO PRN (06:46)
[2018-11-30 07:00] VITALS: BP 115/69
[2018-11-30] MEDS: IPRATRPIUM/ALBUTEROL 0.5/2.5MG 3 ML NEBU. NEB SCH (07:28)
[2018-11-30] MEDS: BUDESONIDE 0.5 MG/2 ML NEBU. NEB SCH (07:29)
--- NOTE | 2018-11-30 07:52 | PDOC ---
PROGRESS NOTES Subjective Subjective Patient reports breathing feels much better to her, feels she can go home today. Objective Objective Vital Signs Date Time Temp Pulse Resp B/P (MAP) Pulse Ox O2 Delivery O2 Flow Rate FiO2 11/30/18 07:32 92 Nasal Cannula 5.0 11/30/18 03:35 97.9 88 16 129/86 (100) 97.9 Intake and Output 11/30/18 07:00 Intake Total 1430 ml Balance 1430 ml Intake Oral 1430 ml # Voids 7 # Bowel Movements 1 Physical Exam Abdomen: Normal bowel sounds, No tenderness Heart: Regular rate Extremities: No edema General: Alert, Oriented X3, No acute distress Lungs: Other (BS mildly decreased throughout, scant expiratory wheezes) Assessment Assessment Problems Medical Problems: (1) CAP (community acquired pneumonia) Status: Acute (2) COPD with acute exacerbation Status: Acute (3) Influenza A Status: Acute Plan Plan of Care 1. Influenza with AE COPD and chronic respiratory failure - improved. No hypoxia on her usual 4L O2. Home today on Prednisone taper, Tamiflu and po abx. 2. DM2 with hyperglycemia - blood sugars elevated due to steroids, home on her usual insulins, advised to take increased doses as needed to treat elevated glucose. 3. chronic pain - stable with po meds. 4. bipolar mood disorder - stable, home on her usual medications. Comment Review of Relevant I have reviewed the following items suyapa (where applicable) has been applied. Labs Laboratory Tests Test 11/28/18 23:57 11/29/18 00:48 11/29/18 02:32 11/29/18 07:32 White Blood Count 5.7 x10^3/uL (4.0-11.0) Red Blood Count 5.20 x10^6/uL (3.50-5.40) Hemoglobin 16.9 g/dL (12.0-15.5) Hematocrit 51.6 % (36.0-47.0) Mean Corpuscular Volume 99 fL (79-100) Mean Corpuscular Hemoglobin 33 pg (25-35) Mean Corpuscular Hemoglobin Concent 33 g/dL (31-37) Red Cell Distribution Width 15.7 % (11.5-14.5) Platelet Count 170 x10^3/uL (140-400) Neutrophils (%) (Auto) 70 % (31-73) Lymphocytes (%) (Auto) 17 % (24-48) Monocytes (%) (Auto) 10 % (0-9) Eosinophils (%) (Auto) 3 % (0-3) Basophils (%) (Auto) 0 % (0-3) Neutrophils # (Auto) 3.9 x10^3uL (1.8-7.7) Lymphocytes # (Auto) 0.9 x10^3/uL (1.0-4.8) Monocytes # (Auto) 0.6 x10^3/uL (0.0-1.1) Eosinophils # (Auto) 0.2 x10^3/uL (0.0-0.7) Basophils # (Auto) 0.0 x10^3/uL (0.0-0.2) Sodium Level 138 mmol/L (136-145) Potassium Level 3.9 mmol/L (3.5-5.1) Chloride Level 97 mmol/L (98-107) Carbon Dioxide Level 36 mmol/L (21-32) Anion Gap 5 (6-14) Blood Urea Nitrogen 7 mg/dL (7-20) Creatinine 0.7 mg/dL (0.6-1.0) Estimated GFR (Cockcroft-Gault) 91.8 BUN/Creatinine Ratio 10 (6-20) Glucose Level 366 mg/dL (70-99) Calcium Level 8.6 mg/dL (8.5-10.1) Magnesium Level 1.8 mg/dL (1.8-2.4) Total Bilirubin 0.5 mg/dL (0.2-1.0) Aspartate Amino Transf (AST/SGOT) 45 U/L (15-37) Alanine Aminotransferase (ALT/SGPT) 68 U/L (14-59) Alkaline Phosphatase 147 U/L (46-116) Creatine Kinase 172 U/L (26-192) Creatine Kinase MB (Mass) 2.5 ng/mL (0.0-3.6) Creatine Kinase MB Relative Index 1.5 % (0-4) Troponin I Quantitative 0.024 ng/mL (0.000-0.055) EN-Bkl-Y-Type Natriuretic Peptide 72 pg/mL (0-124) Total Protein 7.1 g/dL (6.4-8.2) Albumin 3.5 g/dL (3.4-5.0) Albumin/Globulin Ratio 1.0 (1.0-1.7) Thyroid Stimulating Hormone (TSH) 3.841 uIU/mL (0.358-3.74) Urine Collection Type Void Urine Color Yellow Urine Clarity Clear Urine pH 6.0 Urine Specific [place] >=1.030 Urine Protein 30 mg/dL (NEG-TRACE) Urine Glucose (UA) >=1000 mg/dL (NEG) Urine Ketones (Stick) Negative mg/dL (NEG) Urine Blood Negative (NEG) Urine Nitrite Negative (NEG) Urine Bilirubin Negative (NEG) Urine Urobilinogen Dipstick 0.2 mg/dL (0.2 mg/dL) Urine Leukocyte Esterase Negative (NEG) Urine RBC Occ /HPF (0-2) Urine WBC 1-4 /HPF (0-4) Urine Squamous Epithelial Cells Mod /LPF Urine Bacteria 0 /HPF (0-FEW) Urine Yeast Present /HPF Urine Opiates Screen Pos (NEG) Urine Methadone Screen Neg (NEG) Urine Barbiturates Neg (NEG) Urine Phencyclidine Screen Neg (NEG) Urine Amphetamine/Methamphetamine Neg (NEG) Urine Benzodiazepines Screen Pos (NEG) Urine Cocaine Screen Neg (NEG) Urine Cannabinoids Screen Neg (NEG) Urine Ethyl Alcohol Neg (NEG) Influenza Type A Antigen Positive (NEGATIVE) Influenza Type B Antigen Negative (NEGATIVE) Glucose (Fingerstick) 401 mg/dL (70-99) Test 11/29/18 11:39 11/29/18 16:55 11/29/18 20:52 11/30/18 07:46 Glucose (Fingerstick) 460 mg/dL (70-99) 333 mg/dL (70-99) 284 mg/dL (70-99) 377 mg/dL (70-99) Laboratory Tests Test 11/29/18 11:39 11/29/18 16:55 11/29/18 20:52 11/30/18 07:46 Glucose (Fingerstick) 460 mg/dL (70-99) 333 mg/dL (70-99) 284 mg/dL (70-99) 377 mg/dL (70-99) Microbiology 11/29/18 Blood Culture - Preliminary, Resulted NO GROWTH AFTER 1 DAY Medications Current Medications Albuterol/ Ipratropium (Duoneb) 3 ml STK-MED ONCE .ROUTE ; Start 11/28/18 at 23: 53; Stop 11/28/18 at 23:54; Status DC Albuterol Sulfate (Ventolin Neb Soln) 10 mg 1X ONCE CONT NEB Last administered on 11/29/18at 00:53; Start 11/29/18 at 00:30; Stop 11/29/18 at 00:31; Status DC Methylprednisolone Sodium Succinate (SOLU-Medrol 125MG VIAL) 125 mg 1X ONCE IV Last administered on 11/29/18at 02:16; Start 11/29/18 at 00:30; Stop 11/29/18 at 00:31; Status DC Acetaminophen/ Hydrocodone Bitart (Lortab 7.5-325/ 15ml Oral Solution) 15 ml 1X ONCE PO Last administered on 11/29/18at 02:19; Start 11/29/18 at 00:30; Stop 11/29/18 at 00:31; Status DC Ondansetron HCl (Zofran) 4 mg PRN Q8HRS PRN IV NAUSEA/VOMITING 1ST CHOICE; Start 11/29/18 at 00:45; Stop 11/30/18 at 00:44; Status DC Morphine Sulfate (Morphine Sulfate) 4 mg PRN Q2HR PRN IV SEVERE PAIN Last administered on 11/29/18at 07:57; Start 11/29/18 at 00:45; Stop 11/29/18 at 08:25; Status DC Acetaminophen (Tylenol) 650 mg PRN Q4HRS PRN PO FEVER; Start 11/29/18 at 00:45; Stop 11/30/18 at 00:44; Status DC Albuterol/ Ipratropium (Duoneb) 3 ml RTQID NEB Last administered on 11/30/18at 07 :28; Start 11/29/18 at 08:00; Stop 11/30/18 at 07:59 Ceftriaxone Sodium (Rocephin) 1 gm 1X ONCE IVP Last administered on 11/29/18at 02:23; Start 11/29/18 at 01:00; Stop 11/29/18 at 01:01; Status DC Azithromycin 250 ml @ 250 mls/hr 1X ONCE IV Last administered on 11/29/18at 02: 25; Start 11/29/18 at 01:00; Stop 11/29/18 at 01:59; Status DC Benzonatate (Tessalon Perle) 100 mg PRN TID PRN PO COUGH 1ST CHOICE Last administered on 11/29/18 02:20; Start 11/29/18 at 00:45 Insulin Human Regular (HumuLIN R VIAL) 6 unit 1X ONCE IV Last administered on 11/29/18at 02:21; Start 11/29/18 at 01:30; Stop 11/29/18 at 01:31; Status DC Insulin Human Lispro (HumaLOG) 0-9 UNITS TIDWMEALS SQ Last administered on at 09:17; Start 11/29/18 at 08:00 Dextrose (Dextrose 50%-Water Syringe) 12.5 gm PRN Q15MIN PRN IV SEE COMMENTS; Start 11/29/18 at 01:00 Oseltamivir Phosphate (Tamiflu) 75 mg 1X ONCE PO Last administered on at 04:16; Start 11/29/18 at 04:00; Stop 11/29/18 at 04:01; Status DC Guaifenesin (MUCINEX ER with DM) 1 tab PRN BID PRN PO COUGH 2ND CHOICE Last administered on 11/29/18at 04:16; Start 11/29/18 at 04:00 Albuterol Sulfate (Ventolin Neb Soln) 2.5 mg PRN Q6HRS PRN NEB SHORTNESS OF BREATH; Start 11/29/18 at 04:00 Atorvastatin Calcium (Lipitor) 40 mg QHS PO Last administered on 11/29/18at 21:24 ; Start 11/29/18 at 21:00 Cetirizine HCl (ZyrTEC) 10 mg DAILY PO Last administered on 11/29/18at 09:00; Start 11/29/18 at 09:00 Diazepam (Valium) 10 mg TID PO Last administered on 11/29/18 21:25; Start at 09:00 Citalopram Hydrobromide (CeleXA) 40 mg DAILY PO Last administered on 11/29/18at 08:59; Start 11/29/18 at 09:00 Non-Formulary Medication (Fluticasone Propionate (Flovent 100MCG Diskus)) 2 puff BID IH ; Start 11/29/18 at 09:00; Status UNV Insulin Human Lispro (HumaLOG) 100 units TIDWMEALS SQ Last administered on 17:24; Start 11/29/18 at 12:00 Insulin Glargine (Lantus) 100 units BID SQ Last administered on 11/29/18 21:34 ; Start 11/29/18 at 11:30 Non-Formulary Medication (Ipratropium/ Albuterol Sulfate (Combivent Respimat Inhal)) 2 inh QID PRN IH SHORTNESS OF BREATH; Start 11/29/18 at 08:30; Status UNV Naproxen (Naprosyn) 500 mg BID PO Last administered on 11/29/18 21:00; Start at 09:00 Pantoprazole Sodium (Protonix) 40 mg BIDAC PO Last administered on 11/29/18 17: 19; Start 11/29/18 at 09:00 Oxycodone HCl (Roxicodone) 10 mg PRN BID PRN PO PAIN Last administered on 06:46; Start 11/29/18 at 08:45 Oseltamivir Phosphate (Tamiflu) 75 mg BID PO Last administered on 11/29/18 21: 25; Start 11/29/18 at 21:00; Stop 12/04/18 at 20:59 Nicotine (Nicoderm Cq 21mg) 1 patch DAILY TD Last administered on 11/29/18 09: 00; Start 11/29/18 at 09:00 Ceftriaxone Sodium (Rocephin) 1 gm Q24H IVP Last administered on 11/29/18 21:25 ; Start 11/29/18 at 21:00 Azithromycin (Zithromax) 250 mg QHS PO Last administered on 11/29/18 21:24; Start 11/29/18 at 21:00 Methylprednisolone Sodium Succinate (SOLU-Medrol 40MG VIAL) 40 mg Q8HRS IV Last administered on 11/30/18 06:00; Start 11/29/18 at 09:00 Budesonide (Pulmicort) 0.5 mg RTBID NEB Last administered on 11/30/18 07:29; Start 11/29/18 at 09:00 Lactobacillus Rhamnosus (Culturelle) 1 cap BID PO Last administered on 21:24; Start 11/29/18 at 21:00 Active Scripts Active Escitalopram Oxalate 20 Mg Tablet 1 Tab PO DAILY 30 Days Oxycodone Hcl Immed.release (Oxycodone Hcl) 10 Mg Tablet 10 Mg PO PRN BID PRN 30 Days Naproxen 500 Mg Tablet 1 Tab PO BID Omeprazole 20 Mg Capsule.dr 1 Cap PO BID Flovent 100MCG Diskus (Fluticasone Propionate) 100 Mcg Disk.w.dev 2 Puff IH BID Cetirizine Hcl 10 Mg Tablet 1 Tab PO DAILY Reported Combivent Respimat Inhal (Ipratropium/Albuterol Sulfate) 4 Gm Aer.w.adap 2 Inh IH QID PRN Atorvastatin Calcium 40 Mg Tablet 1 Tab PO QHS Levemir (Insulin Detemir) 100 Unit/1 Ml Vial 100 Unit SQ BID am and pm Novolog Flexpen (Insulin Aspart) 100 Unit/1 Ml Insuln.pen 100 Unit SQ TIDAC Proair Hfa Inhaler (Albuterol Sulfate) 8.5 Gm Hfa.aer.ad 2 Puff IH PRN Q4-6HRS PRN Diazepam 10 Mg Tablet 10 Mg PO TID Vitals/I & O Vital Sign - Last 24 Hours 11/29/18 11/29/18 11/29/18 11/29/18 07:57 08:00 08:21 10:49 Resp 18 18 Pulse Ox 91 91 O2 Delivery Nasal Cannula Nasal Cannula Nasal Cannula Nasal Cannula O2 Flow Rate 4.0 4.0 4.0 4.0 11/29/18 11/29/18 11/29/18 11/29/18 11:00 11:50 12:13 15:00 Temp 97.9 97.7 97.9 97.7 Pulse 95 100 Resp 18 18 18 B/P (MAP) 142/66 (91) 143/56 (85) Pulse Ox 91 84 92 O2 Delivery Nasal Cannula Nasal Cannula Nasal Cannula O2 Flow Rate 4.0 3.0 4.5 11/29/18 11/29/18 11/29/18 11/29/18 16:55 19:28 19:48 20:00 Temp 99.3 99.3 Pulse 100 Resp 20 B/P (MAP) 102/79 (87) Pulse Ox 89 90 90 O2 Delivery Nasal Cannula Nasal Cannula Nasal Cannula Nasal Cannula O2 Flow Rate 5.0 4.0 4.0 4.0 11/29/18 11/29/18 11/29/1811/30/19 20:30 21:46 23:23 03:35 Temp 97.7 97.9 97.7 97.9 Pulse 93 88 Resp 16 16 B/P (MAP) 129/79 (96) 129/86 (100) Pulse Ox 90 92 92 91 O2 Delivery Nasal Cannula Nasal Cannula Nasal Cannula Nasal Cannula O2 Flow Rate 4.0 5.0 4.0 4.0 11/30/18 11/30/18 06:46 07:32 Pulse Ox 91 92 O2 Delivery Nasal Cannula Nasal Cannula O2 Flow Rate 4.0 5.0 Intake and Output 11/29/18 11/29/18 11/30/18 15:00 23:00 07:00 Intake Total 625 ml 425 ml 380 ml Balance 625 ml 425 ml 380 ml ANY JACKSON MD Nov 30, 2018 07:52
[2018-11-30] MEDS: INSULIN LISPRO 300 UNITS/3 ML INSULN.PEN. SQ SCH ×2 (08:00→08:36)
[2018-11-30] MEDS ORDERED: PRED-220 PO (08:00)
[2018-11-30] MEDS ORDERED: OSEL75CA PO (08:00)
[2018-11-30] MEDS ORDERED: DOXY100C2 PO (08:00)
[2018-11-30] MEDS: NAPROXEN 500 MG TABLET PO SCH (08:19)
[2018-11-30] MEDS: PANTOPRAZOLE 40 MG TABLET.DR. PO SCH (08:19)
[2018-11-30] MEDS: OSELTAMIVIR 75 MG CAPSULE PO SCH (08:19)
[2018-11-30] MEDS: CITALOPRAM 20 MG TABLET. PO SCH (08:19)
[2018-11-30] MEDS: LACTOBACILLUS RHAMNOSUS GG 1 CAPSULE. PO SCH (08:20)
[2018-11-30] MEDS: CETIRIZINE HCL 10 MG TABLET. PO SCH (08:20)
[2018-11-30] MEDS: NICOTINE 21MG PATCH. TD SCH (08:21)
[2018-11-30] MEDS: diazePAM 5 MG TABLET PO SCH (08:22)
[2018-11-30] MEDS: INSULIN GLARGINE 300 UNITS/3 ML INSULN.PEN. SQ SCH (08:36)
--- NOTE | 2018-11-30 10:22 | NUR ---
Discharge Note: SHAHNAZ PELAEZ I6 [facility] Discharge instructions and discharge home medications reviewed with patient and a copy given. All questions have been answered and understanding verbalized. The following instructions and handouts were given: COPD exacerbation handout Influenza A handout prescriptions for prednisone, doxycycline, tamiflu To ff up with PCP in 1 week Discontinued lines and drains: peripheral catheter IV intact, patient tolerated removal, no complications noted. Patient discharged to home with self care via wheelchair at 1010. She was instructed to go straight home.
--- NOTE | 2018-11-30 19:34 | DS ---
DATE OF DISCHARGE: 11/30/2018 CHIEF COMPLAINT: Shortness of breath. HISTORY OF PRESENT ILLNESS: The patient is a 43-year-old female with chronic respiratory failure due to COPD, who presented to the Emergency Room with the above complaint. She reported a several-day history of increasing shortness of breath. She was using her usual oxygen at 4 liters per nasal cannula at home and taking her inhalers and breathing treatments, but her symptoms persisted, so she came to the Emergency Department. Evaluation there included a chest x-ray, which showed patchy perihilar airspace disease. The patient was positive for influenza A. Treatment was started and she was admitted for further care. HOSPITAL COURSE: The patient was started on antibiotics for treatment of community-acquired pneumonia and Tamiflu for treatment of her influenza. She was not hypoxic on her usual oxygen and this was continued. She received nebulized breathing treatments and nebulized steroids with IV Solu-Medrol. She had good improvement in her symptoms with these treatments and felt ready to go home by the day of discharge. The patient is an insulin-dependent diabetic. Her blood sugars were elevated due to the Solu-Medrol and this was treated with increased insulin. She is advised to check her fingersticks frequently and continue her insulins after discharge. The patient has bipolar mood disorder and chronic pain. These were stable with her usual medication. She is aware that smoking cessation is advised. She is not interested in this at this time. FINAL DIAGNOSES: 1. Influenza A. 2. Acute exacerbation of chronic obstructive pulmonary disease. 3. Community-acquired pneumonia. 4. Chronic respiratory failure. 5. Diabetes mellitus type 2, insulin-dependent. 6. Bipolar mood disorder. 7. Chronic pain. 8. Tobaccoism. DISCHARGE MEDICATIONS: Tamiflu 75 mg b.i.d. x 4 days, then discontinue; doxycycline 100 mg b.i.d. x 5 days; prednisone 10 mg tablets 40 mg daily for 2 days, then 30 mg daily for 2 days, then 20 mg daily for 2 days, then 10 mg daily for 2 days, then discontinue; albuterol nebulized treatments or inhaler p.r.n.; atorvastatin 40 mg daily; cetirizine 10 mg daily; diazepam 10 mg t.i.d.; escitalopram 20 mg daily; Flovent 100 mcg 2 puffs b.i.d.; NovoLog insulin 100 units t.i.d. before meals; Levemir insulin 100 units b.i.d.; Combivent inhaler; naproxen 500 mg b.i.d. p.r.n.; omeprazole 20 mg b.i.d.; oxycodone IR 10 mg b.i.d. p.r.n. pain. DISCHARGE INSTRUCTIONS: Follow up with Dr. Jefferson within 2 weeks. ANY JACKSON MD DR: LUCY/vangie JOB#: [id number] / [id number] DENNIS
== END 2018-11-30 10:38 | disposition home or self-care (01) | DRG 190 ==
LOC: ER 23:39 → 6 SOUTH 11-29 00:50
PROVIDERS: ADMIT Family Medicine; ATTEND Family Medicine
DX: J44.1 Chronic obstructive pulmonary disease with (acute) exacerbation (principal); J10.00 Influenza due to other identified influenza virus with unspecified type of pneumonia; J96.10 Chronic respiratory failure, unspecified whether with hypoxia or hypercapnia; J44.0 Chronic obstructive pulmonary disease with (acute) lower respiratory infection; E11.65 Type 2 diabetes mellitus with hyperglycemia; F17.210 Nicotine dependence, cigarettes, uncomplicated; F31.9 Bipolar disorder, unspecified; G89.29 Other chronic pain; M19.90 Unspecified osteoarthritis, unspecified site; Z79.4 Long term (current) use of insulin; Z90.49 Acquired absence of other specified parts of digestive tract; Z99.81 Dependence on supplemental oxygen; T38.0X5A Adverse effect of glucocorticoids and synthetic analogues, initial encounter
CPT/HCPCS: 36415; 71045; 80053; 80307; 81001; 82553; 82962; 83735; 83880; 84443; 84484; 85025; 87040; 87804; 93005; 94640; 94644; 96365; 96375; 99406; J0456; J0696; J1815; J2270; J2920; J2930; J7613; J7620; J7626; Q0144; 99285-25

== ENCOUNTER → 2021-01-01 | Outpatient (CLI) | payer OTHER ==
[~2021-01-01] MED LIST changes: +DOXY100C2 PO; +ESCITALOPRAM OX20 MG PO; -FLUT100D IH; +FLUT100D2 IH; +IPRA4AER IH; -OMEP20CA10 PO; +OMEP20CA16 PO; +OSEL75CA PO; +OXYC10TA PO; +OXYC1TAB19 PO; +PRED-220 PO
--- NOTE | 2021-01-01 15:54 | RAD ---
DATE: 01/01/2021 EXAM: DIGITAL DIAGNOSTIC BILATERAL, BREAST RIGHT HISTORY: Right breast mass, skin erythema and thickening, creamy white nipple discharge. On antibiotics for 3 weeks for possible abscess. Not improving. COMPARISON: None. Baseline exam. This study was interpreted with the benefit of Computerized Aided Detection (CAD). Breast Density: SCATTERED The breast parenchyma shows scattered fibroglandular densities. Breast parenchyma level B. FINDINGS: MAMMOGRAM: There is a 7.4 x 6.6 cm dense focal asymmetry in the inferior right breast at approximately 6:00, anterior and middle depth. On spot compression there appears to the an underlying mass or masses with partially obscured margins There is focal skin thickening in the inner and inferior right breast. Mild nipple retraction. There are abnormal right axillary lymph nodes with cortical thickening. No mass in the left breast. No calcification, or architectural distortion. ULTRASOUND: Focused ultrasound of the right breast was performed. There is a large irregular solid-appearing isoechoic to hypoechoic mass at 6:00 measuring at least 4.5 x 2.7 x 3.3 cm. This is no significant internal vascularity but there is some vascularity along the margins, where there is more hypoechoic material or fluid. There is diffuse edema. There is marked skin thickening with hypervascularity at 3:00 in the area of thickening and erythema on exam. The mass at 6:00 does not definitively extend to the area of skin thickening at 3:00. There are abnormal enlarged lymph nodes with thickened cortices in the axilla. For example a lymph node measuring 1.8 cm in length of the cortex measuring 7 mm in thickness. IMPRESSION: Findings suspicious for malignancy in the right breast including large solid-appearing right breast mass with surrounding fluid or debris at 6:00, skin thickening and hypervascularity at 3:00, and right axillary lymphadenopathy. This is suspicious for inflammatory or locally advanced breast cancer. A complex abscess and mastitis could have a similar appearance but are less likely. Recommend ultrasound-guided biopsy of the breast mass and surgical consultation. Skin punch biopsy could also be considered by the surgeon. Results and recommendations were discussed by Dr. Carter with the patient at the time of the exam, and with Dr. Mercado immediately after the exam. BI-RADS CATEGORY: 4 SUSPICIOUS ABNORMALITY- BIOPSY SHOULD BE CONSIDERED RECOMMENDED FOLLOW-UP: BIO BIOPSY RECOMMENDED PQRS compliance statement: Patient information was entered into a reminder system with a target due date for the next mammogram. Mammography is a sensitive method for finding small breast cancers, but it does not detect them all and is not a substitute for careful clinical examination. A negative mammogram does not negate a clinically suspicious finding and should not result in delay in biopsying a clinically suspicious abnormality. "Our facility is accredited by the [employer] Mammography Program."
== END ==
LOC: MAMMO 13:14
PROVIDERS: ATTEND Family Medicine
DX: N61.0 Mastitis without abscess (principal); N64.52 Nipple discharge; Z79.2 Long term (current) use of antibiotics
CPT/HCPCS: 76641; 77066

== ENCOUNTER → 2021-10-15 | Outpatient (CLI) | payer OTHER ==
[2021-01-09 19:00] VITALS: BP 117/60
[~2021-10-15] MED LIST changes: +AMOX1TAB61 PO; -DOXY100C2 PO; +DOXY100C3 PO; +DOXY100T PO
--- NOTE | 2021-10-15 13:09 | KCIC ---
Study: XR HAND 3 VIEWS Indication: Osteoarthrosis. Hand pain. Comparison: None. Findings: Left hand: No fracture, aggressive erosion or periostitis. The base of the first proximal phalanx at its radial margin is slightly truncated but with a sclerotic margin. Maintained joint spaces. Cystic change with peripheral sclerosis at the proximal aspect of the lunate. No advanced arthrosis throughout the hand or wrist. Right hand: No fracture, aggressive erosion or periostitis. Maintained joint spaces. Minimal subchondral cystic c hange at the radial aspect of the first proximal phalanx at its base. No bulky osteophyte formation. Impression: Minimal degenerative changes. Well maintained joint spaces. No radiographic manifestations of an infl ammatory arthritis. Electronically signed by: HEIDY ACUÑA MD (10/15/2021 1:07 PM) [facility]
--- NOTE | 2021-10-15 13:12 | KCIC ---
Study: XR KNEE _3 VIEWS_LT Indication: Osteoarthrosis. Knee pain. Comparison: None. Findings: Chronic focus of mineralization/ossification projecting adjacent to the lateral tibial spine. Femorot ibial compartment joint space height is maintained. Osteophyte at the periphery of the medial femoral condyle seen on the oblique view. Subchondral lucency of the patella suggesting overlying chondral l oss. No fracture or large joint effusion. Alignment is within normal limits. Impression: Subchondral lucency at the patella suggesting overlying chondrosis. Small medial joint line osteophyt e formation. Probable loose body projecting adjacent to the lateral tibial spine. No large joint effu kali. Electronically signed by: HEIDY ACUÑA MD (10/15/2021 1:10 PM) [facility]
== END ==
LOC: KCIC 09:31
PROVIDERS: ATTEND Family Medicine
DX: M25.761 Osteophyte, right knee (principal); M25.861 Other specified joint disorders, right knee; M25.541 Pain in joints of right hand; M25.542 Pain in joints of left hand; M17.12 Unilateral primary osteoarthritis, left knee; M19.041 Primary osteoarthritis, right hand; M19.042 Primary osteoarthritis, left hand
CPT/HCPCS: 73562; 73130-50